=== PATIENT | male | born 1955 | race Caucasian/White ===

== ENCOUNTER 2024-01-05 08:57 | Emergency (ER) | payer OTHER, SELFPAY ==
[2024-01-05 08:59] VITALS: BP 152/82
--- NOTE | 2024-01-05 10:07 | ED.MUSCINJ ---
HPI-Injury
General
Chief Complaint: Musculo-Skeletal Complaint
Source: patient
Exam Limitations: none
Time Seen by Provider: 01/05/24 09:48
Nursing documentation reviewed up to this point in time: agreed with
History of Present Illness-Injury
Is this injury a work related problem?: No
Is pt an associate of [facility]?: No
Initial Injury comments:
68-year-old male presents with bilateral upper back pain for 3 days. He pushes and pulls his in her hospital bed at home. He states he did range of motion exercises which did seem to help. He also took baclofen.
Past History
Past History
ED Past Medical History: CAD, GERD (Hiatal hernia), HTN, Hypercholesterolemia, IDDM and Other (Obesity)
ED Past Surgical History: Cardiac (PTCA with stent right coronary artery September 2014. Stent �2 LAD January 2016) and Cholecystectomy
Social History
Tobacco: Former smoker
Alcohol: None
Personal:
Living: with family
Employment: Employed
Family History
Family History: Diabetes and Hypertension; Negative Early CAD
Review of Systems
Review of Systems
Allergies reviewed?: Yes
All Other Systems: Not applicable
Constitutional: Reports no symptoms
EENT: Reports no symptoms
Respiratory: Reports no symptoms
Cardiac: Reports no symptoms; Denies chest pain
ABD/GI: Reports no symptoms
: Reports no symptoms
Musculoskeletal: Reports muscle pain and back pain
Skin: Reports no symptoms
Neurological: Reports no symptoms
Endocrine: Reports no symptoms
Hematologic/Lymphatic: Reports no symptoms
Psychiatric: Reports no symptoms
Phy Exam
Physical Exam
Physical Exam:
Physical Exam
General: no apparent distress, not acutely ill
Neck: supple. no meningeal signs. normal posterior pharynx
Heart: s1/s2 regular rate and rhythm, no murmur. equal radial
pulses.
HEENT: Pupils equal round reactive to light, EOMI
Lungs: no acute respiratory distress. clear bilaterally
Abdomen: normal bowel sounds. not tender. no CVAT, right vertical abdominal incision scar
Neuro: alert and oriented. no focal neurological deficits cranial nerves II through XII intact
Skin: no rash
Psychiatric: well kept. interactive and cooperative
Extremities: no edema. no calf tenderness. negative homans. good distal pulses
Injury Course
Orders/Labs/Results
Orders:
Orders
01/05/24 09:05
Electrocardiogram (*1) Urgent
Reason for Study: Other
Other Reason for Exam: back pain
EKG- Treatment ONCE
01/05/24 10:09
Case Management Consult ONCE
Case Management Consult: VN/Home Care
Requested By:: PHYSICIAN
01/05/24 11:12
Lidocaine [Lidocaine 4% Patch] 1 patch TOPICAL STAT STA
01/05/24 11:13
Acetaminophen [Tylenol] 650 mg PO NOW STA
MDM/Problems Addressed
Differential Diagnosis Includes:
CHF, CT, muscle strain
MDM/Problems Addressed:
68-year-old male with bilateral shoulder strain. No chest pain, no shortness of breath. No signs of ischemia on EKG. Will treat with Tylenol Lidoderm, stretching. Stable for discharge.
Chronic conditions affecting care: HTN and CAD
*Pulse Oximetry
Patient hypoxic: no
*EKG
Interpreted by ED Provider?: Yes
EKG Intrepretation Date: 01/05/24
EKG Intrepretation Time: 09:09
Interpretation: abnormal
Comparison EKG: no changes
Heart Rate: 70
Rate: normal
Rhythm: sinus
[place]: normal axis
Interval: first degree heart block
QRS Pattern: normal QRS
Ischemia: no ischemia
*Sewing Demonstrator Interpretation
Rate: Sewing Demonstrator- N/A
*Critical Care Note
Total Time (30-74mins, 75-104mins- exclusive of procedures): Not Applicable
Data Reviewed
Further Testing Considered But Not Given:
Labs and imaging not indicated
Patient Management
Social determinants of health affecting care: Living situation
Escalation/DeEscalation of care consider admission/obs:
Admit not indicated
ED Attending Note
-
Portions of this chart may have been created with voice recognition software.� Occasional wrong word or��sound alike� substitutions may have occurred due to the inherent limitations of voice recognition software.
Discharge Plan
Departure
Patient Disposition: Home (Routine Discharge)
Date of Disposition: 01/05/24
Time of Disposition: 11:17
Patient with high blood pressure during this ER visit?: Yes
Condition: Good
Discharge Problem:
Muscle strain of upper back
Instructions: Muscle Strain (DC)
Prescriptions:
No Action
aspirin 81 MG tablet,delayed release (DR/EC)
81 mg PO DAILY
atorvastatin 80 MG tablet
80 mg PO QPM
famotidine 40 MG tablet
40 mg PO DAILY
clopidogrel 75 MG tablet
75 mg PO DAILY Qty: 90 3RF
Hold Instructions: Resume on 06/11/23. Do not resume if there is still significant blood in the urine - call the office to discuss if you are still having bleeding at this time
furosemide 40 MG tablet
40 mg PO DAILY
carvedilol 12.5 MG tablet
12.5 mg PO BID
isosorbide mononitrate 30 MG tablet extended release 24 hr
30 mg PO DAILY
tamsulosin 0.4 MG capsule
0.4 mg PO BID
amlodipine 10 MG tablet
10 mg PO DAILY
irbesartan 150 MG tablet
150 mg PO DAILY
oxybutynin chloride 5 MG tablet
5 mg PO QPM
finasteride 5 mg Tablet
5 mg PO DAILY
Novolin 70/30 U-100 Insulin 100 unit/mL (70-30) Suspension
70 unit SC . DAILY IN A.M.
insulin NPH and regular human 100 unit/mL (70-30) Suspension
50 unit SC QPM
Referrals:
Jef Madsen MD [Family Provider] - Call in 1-3 days for appt
Interventions
Interventions:
*Risk Screen - Suicide Last Done: 01/05/24 10:07
*General Assessment Last Done: 01/05/24 09:01
*Neglect/Abuse Screening Last Done: 01/05/24 10:07
ED- Fall Risk Assessment Last Done: 01/05/24 10:48
*ED COVID-19 Vaccine History Last Done: 01/05/24 09:01
ED-Musculoskeletal Assessment Last Done: 01/05/24 10:02
Discharge Date and Time
Print Language: MALTESE
[2024-01-05 10:08] VITALS: BMI 41.5
[2024-01-05 10:11] VITALS: BP 156/87
--- NOTE | 2024-01-05 11:44 | CM ---
Addendum entered by No Ann RN 01/05/24 12:02:
Caregiver list provided
Original Note:
Patient in ED 31 with Dx muscle strain upper back.
Met with patient who resides with his in a 2 story house with 3 VEDA and ramp access. Patient's bedroom/bath on first floor.
The patient has been independent in ADLs and ambulation.
The patient has no DME or prior VN.
PCP - Jef Madsen
Pharmacy - [facility] Piter Silver, Jorge Alberto
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 He feels he has upper back/shoulder pain due to repeatedly pulling his up in bed by himself, several times/day. His was approved for 63 hrs/week caregiver through
Medicaid, however [facility] only provided one caregiver so there are a few days when there isn't a caregiver to assist. Their daughter lives with him but does not help - says she works days & evenings. Caregiver
Discussed using the reyna lift, always having 2nd person assisting with pulling her up in bed (caregiver, daughter) and using drawsheet for repositioning.
Offered VN for PT and patient agrees - he chooses [facility].
Referral to FABIO Villagomez.
Plan home today with [facility] and Caregiver List.
[2024-01-05] MEDS: TYLENOL 650 MG PO (11:52)
[2024-01-05] MEDS: LIDOCAINE 4% PATCH 1 PATCH TOPICAL (11:52)
== END 2024-01-05 12:50 | disposition home or self-care (01) ==
LOC: EMR 08:57
PROVIDERS: EMERGENCY PHYSICIAN Emergency Medicine; FAMILY PHYSICIAN Family Medicine
DX: S29.012A Strain of muscle and tendon of back wall of thorax, initial encounter (principal); X58.XXXA Exposure to other specified factors, initial encounter; I25.10 Atherosclerotic heart disease of native coronary artery without angina pectoris; I10 Essential (primary) hypertension; K21.9 Gastro-esophageal reflux disease without esophagitis; K44.9 Diaphragmatic hernia without obstruction or gangrene; Z95.5 Presence of coronary angioplasty implant and graft; Z90.49 Acquired absence of other specified parts of digestive tract; E66.9 Obesity, unspecified; E11.9 Type 2 diabetes mellitus without complications; I44.0 Atrioventricular block, first degree; M19.90 Unspecified osteoarthritis, unspecified site; E78.00 Pure hypercholesterolemia, unspecified; Z87.891 Personal history of nicotine dependence; Z87.01 Personal history of pneumonia (recurrent); Z79.4 Long term (current) use of insulin
CPT/HCPCS: 99283; 93005

== ENCOUNTER 2024-06-08 00:59 | Emergency (ER) | payer OTHER, SELFPAY ==
[2024-06-08 01:02] VITALS: BP 160/83
[2024-06-08 02:05] VITALS: BMI 44.1
--- NOTE | 2024-06-08 02:09 | ED.GENMED ---
History of Present Illness
General
Chief Complaint: Musculo-Skeletal Complaint
Source: patient
Exam Limitations: none
Time Seen by Provider: 06/08/24 01:59
History of Present Illness
History of Present Illness:
See MDM
Past History
Past History
ED Past Medical History: CAD, GERD (Hiatal hernia), HTN, Hypercholesterolemia, IDDM and Other (Obesity)
ED Past Surgical History: Cardiac (PTCA with stent right coronary artery September 2014. Stent �2 LAD January 2016) and Cholecystectomy
Social History
Tobacco: Former smoker
Alcohol: None
Personal:
Living: with family
Employment: Employed
Family History
Family History: Diabetes and Hypertension; Negative Early CAD
Phy Exam
Physical Exam
Physical Exam:
See MDM
Course
Orders/Labs/Results
Orders:
Orders
06/08/24 01:02
Foot, Left 3 View [CR Foot - Left Min 3 Views] Urgent
Comment:
Reason For Exam: pain
06/08/24 02:09
Ketorolac [Toradol] 30 mg IM NOW STA
06/08/24 03:16
Oxycodone [Roxicodone] 5 mg PO NOW STA
Vital Signs
Initial and Last Documented VS:
Initial Vital Signs
Temp Pulse Resp BP Pulse Ox
97.4 F 63 20 160/83 100
06/08/24 01:02 06/08/24 01:02 06/08/24 01:02 06/08/24 01:02 06/08/24 01:02
Last Documented Vital Signs
Temp Pulse Resp BP Pulse Ox
97.4 F 63 20 160/83 100
06/08/24 01:02 06/08/24 01:02 06/08/24 01:02 06/08/24 01:02 06/08/24 01:02
MDM/Problems Addressed
Differential Diagnosis Includes:
HPI and MDM Narrative:
68-year-old male presenting with left foot pain. Patient does acknowledge that he hit his foot against a piece of furniture earlier in the day. Patient states his foot started to hurt throughout the day and is having trouble bearing weight. He
denies any redness or numbness. X-ray was done prior to my evaluation and shows no evidence of acute fracture. On exam, he has tenderness to the dorsum of his foot but it is neurovascularly intact. There is no skin changes. Will give dose of
Toradol and continue to reassess
Physical exam
General: Well appearing and non-toxic
HEENT: protecting airway
Neck: appears supple
CV: No evidence of cyanosis
Resp: No accessory muscle use
Abd: Non-distended
Extremities: Mild edema to dorsum of left foot. Distal extremity neurovascular intact. DP +2. Sensation grossly intact
Neuro: alert
Psych: Normal affect
Skin: Intact
Problems Addressed including Acute and Chronic Conditions affecting care:
1. Left foot pain
Acuity: acute
Prognosis: stable
Details: No evidence of fracture on exam. Will give Toradol. Discussed likely contusion or sprain. No skin changes to suggest gout
Updates
Symptoms improving with Toradol. Discussed follow-up with podiatry.
Differential Diagnosis (but not limited to): Sprain, strain, gout, fracture
Testing considered: Blood work
Drug therapy (if applicable): OTC meds, please see d/c instruction regarding Rx drugs
Amount and/or Complexity of Data Reviewed
Clinical info obtained from: Patient
External data reviewed: N/A
Labs I independently reviewed (but not limited to): N/A
Radiology: X-ray independently reviewed: Left foot x-ray without evidence of fracture
Pulse Ox: not hypoxic
EKG independently reviewed: N/A
Laborer Golf Course: N/A
Critical Care: N/A
Risk of Complication:
Social Determinants of health: Good social support
Discussed with other providers: N/A
Escalation of Care includes Admit/Obs: After being observed in the Emergency Department, pt stable for discharge.
Occasional wrong word or 'sound a like' substitutions may have occurred due to the inherent limitations of voice recognition software. Read the chart carefully and recognize, using context, where substitutions have occurred.
*Critical Care Note
Total Time (30-74mins, 75-104mins- exclusive of procedures): Not Applicable
ED Attending Note
-
Portions of this chart may have been created with voice recognition software.� Occasional wrong word or��sound alike� substitutions may have occurred due to the inherent limitations of voice recognition software.
Discharge Plan
Departure
Patient Disposition: Home (Routine Discharge)
Date of Disposition: 06/08/24
Time of Disposition: 03:16
Patient with high blood pressure during this ER visit?: Yes
Discharge Problem:
Foot pain, left
Prescriptions:
New
diclofenac potassium 50 mg tablet
50 mg PO BID Qty: 20 0RF
oxycodone 5 mg tablet
5 mg PO Q8H PRN (Reason: Pain) Qty: 10 0RF
No Action
aspirin 81 MG tablet,delayed release (DR/EC)
81 mg PO DAILY
atorvastatin 80 MG tablet
80 mg PO QPM
famotidine 40 MG tablet
40 mg PO DAILY
clopidogrel 75 MG tablet
75 mg PO DAILY Qty: 90 3RF
furosemide 40 MG tablet
40 mg PO DAILY
carvedilol 12.5 MG tablet
12.5 mg PO BID
isosorbide mononitrate 30 MG tablet extended release 24 hr
30 mg PO DAILY
tamsulosin 0.4 MG capsule
0.4 mg PO BID
amlodipine 10 MG tablet
10 mg PO DAILY
irbesartan 150 MG tablet
150 mg PO DAILY
oxybutynin chloride 5 MG tablet
5 mg PO QPM
finasteride 5 mg Tablet
5 mg PO DAILY
Novolin 70/30 U-100 Insulin 100 unit/mL (70-30) Suspension
70 unit SC . DAILY IN A.M.
insulin NPH and regular human 100 unit/mL (70-30) Suspension
50 unit SC QPM
Referrals:
Elinor Montanez DPM [Active] -
Jef Madsen MD [Family Provider] -
Activity Restrictions/Additional Instructions:
Please return for any worsening symptoms.
You may return at any time if you have further concerns.
Please follow up with your doctor at the first available appointment, preferably this week.
Please make an appointment to see the maintenance repairer if symptoms persist.
You were given a prescription for narcotics. If you require this pain medicine, please take a daily [id number] stool softener to avoid constipation.
Thank you for choosing [facility].
Interventions
Interventions:
*Risk Screen - Suicide Last Done: 06/08/24 01:02
*General Assessment Last Done: 06/08/24 01:00
ED- Fall Risk Assessment Last Done: 06/08/24 02:35
ED-Musculoskeletal Assessment Last Done: 06/08/24 02:35
Discharge Date and Time
Print Language: BENGALI
[2024-06-08] MEDS: TORADOL 30 MG IM (02:12)
[2024-06-08] MEDS: ROXICODONE 5 MG PO (03:24)
[2024-06-08 03:36] VITALS: BP 151/74
== END 2024-06-08 03:34 | disposition home or self-care (01) ==
LOC: EMR 00:59
PROVIDERS: EMERGENCY PHYSICIAN Student in an Organized Health Care Education/Training Program; FAMILY PHYSICIAN Family Medicine
DX: M79.672 Pain in left foot (principal); W22.03XA Walked into furniture, initial encounter; I25.10 Atherosclerotic heart disease of native coronary artery without angina pectoris; I10 Essential (primary) hypertension; E78.00 Pure hypercholesterolemia, unspecified; E11.9 Type 2 diabetes mellitus without complications; Z87.891 Personal history of nicotine dependence; Z95.5 Presence of coronary angioplasty implant and graft; Z90.49 Acquired absence of other specified parts of digestive tract
CPT/HCPCS: 96372; 99284; 73630

== ENCOUNTER → 2024-07-02 13:30 | Outpatient (REF) | payer OTHER, SELFPAY | LOC: RCS 13:30 | PROVIDERS: ATTENDING PHYSICIAN Internal Medicine Cardiovascular Disease; FAMILY PHYSICIAN Family Medicine | DX: I35.0 Nonrheumatic aortic (valve) stenosis (principal) | CPT/HCPCS: 93306 ==

== ENCOUNTER 2024-11-18 13:06 | Emergency (ER) | payer OTHER, SELFPAY ==
[2024-11-18 13:14] VITALS: BP 157/99
[2024-11-18 13:42] LABS: % Basophils 0.3 % (0-2); % Eosinophils 3.4 % (0-6); % Immature Granulocytes 0.4 % (0-0.5); % Lymphocytes 17.1 % (20.5-51.1); % Monocytes 5.8 % (1.7-9.3); Absolute Eosinophils 0.3 10^3/uL (0-0.7); Absolute Lymphocytes 1.3 10^3/uL (1.2-3.4); Absolute Monocytes 0.4 10^3/uL (0.1-0.6); Absolute Neutrophils 5.4 10^3/uL (1.4-6.5); Hematocrit 40.1 % (39.0-52.0); Hemoglobin 13.9 g/dL (13.0-18.0); Mean Corp Hgb Conc. 34.7 g/dL (33.0-37.0); Mean Corpuscular Hgb 29.1 pg (27.0-31.0); Mean Corpuscular Volume 83.9 fL (80.0-94.0); Mean Platelet Volume 10.6 fL (7.4-10.4); Nucleated Red Blood Cells % 0 % (-); Platelet Count 148 10^3/uL (130-400); Red Blood Cell Count 4.78 10^6/uL (4.70-6.10); Red Cell Dist. Width 13.2 % (11.5-14.5); White Blood Cell Count 7.4 10^3/uL (4.8-10.8)
[2024-11-18 13:59] LABS: ALT (SGPT) 27 U/L (0-50); AST (SGOT) 21 U/L (17-59); Albumin 3.2 g/dl (3.5-5.0); Alkaline Phosphatase 61 U/L (38-126); Blood Urea Nitrogen 19 mg/dl (9-20); Calcium 8.9 mg/dl (8.4-10.2); Carbon Dioxide 29 mmol/L (22-30); Chloride 108 mmol/L (98-107); Glucose 220 mg/dl (70-99); Lipase 36 U/L (23-300); Potassium 3.8 mmol/L (3.5-5.1); Sodium 143 mmol/L (135-145); Total Protein 5.8 g/dl (6.3-8.2); eGFR > 60.00
--- NOTE | 2024-11-18 14:30 | ED.GENMED ---
ED Provider Triage
<Karen Bey PA-C - Last Filed: 11/18/24 14:47>
-
Attestation: A medical screening examination has been initiated by a qualified medical provider. Based on the assessment performed at this time, it has been determined that an emergent medical condition may exist and the patient has been informed
that further medical evaluation and possible additional diagnostic testing may be needed.
HPI: 68-year-old male presenting with diffuse abdominal pain and watery diarrhea X 7 days. Symptoms started to improve the end of last week although returned 3 days ago and seem worse. No fever, chills, nausea, or vomiting.
No recent antibiotic use or hospitalization. No recent travel. Grandson was sick with similar symptoms a few weeks ago.
GENERAL: Alert , in no apparent distress
EYE: No visual abnormalities.
NECK: Trachea midline
ENT: No visible abnormalities.
LUNGS: No acute respiratory distress
NEUROLOGICAL: Alert and oriented
SKIN: Skin intact. No visible changes.
MUSCULOSKELETAL: Moving extremities normally
PSYCH: Normal and appropriate interaction.
This is a medical evaluation conducted in person to initiate diagnostic evaluation and provide initial therapeutics. Please see further documentation by the treating clinician.
Will check labs, stool samples, urinalysis, CT abdomen/pelvis. Will give IV fluids. Patient declines analgesia at this time.
History of Present Illness
<Karen Bey PA-C - Last Filed: 11/18/24 14:47>
General
Chief Complaint: Abdominal Pain
Time Seen by Provider: 11/18/24 16:04
<Matthew Domingo PA-C - Last Filed: 11/18/24 19:39>
General
Source: patient
Exam Limitations: none
History of Present Illness
History of Present Illness:
See above triage note. 68-year-old male presents with intermittent diarrhea over the last 10 days. He had an episode that started 10 days ago and lasted 4 days. This seemed to improve when he is feeling better however 2 nights ago he notes
recurrent diarrhea. He notes greater than 5 episodes of watery yellow stool a day. No recent antibiotics. He denies any black discoloration to the stool. No fever. He is nauseous without vomiting. He notes generalized abdominal pain. No other
complaints at this time
Past History
<Karen Bey PA-C - Last Filed: 11/18/24 14:47>
Past History
ED Past Medical History: CAD, GERD (Hiatal hernia), HTN, Hypercholesterolemia, IDDM and Other (Obesity)
ED Past Surgical History: Cardiac (PTCA with stent right coronary artery September 2014. Stent �2 LAD January 2016) and Cholecystectomy
Social History
Tobacco: Former smoker
Alcohol: None
Personal:
Living: with family
Employment: Employed
Family History
Family History: Diabetes and Hypertension; Negative Early CAD
Phy Exam
<Matthew Domingo PA-C - Last Filed: 11/18/24 19:39>
Physical Exam
Physical Exam:
General: Well-appearing male no acute respiratory distress
HEENT normocephalic atraumatic
Heart: Regular rate and rhythm
Lungs: Clear no wheeze
Abdomen is soft mildly diffusely tender nondistended no guarding
Extremities: No cyanosis or edema
Course
<Karen Bey PA-C - Last Filed: 11/18/24 14:47>
Orders/Labs/Results
Orders:
Orders
11/18/24 13:23
Complete Blood Count/With Diff Urgent
Comprehensive Metabolic Panel Urgent
Lipase Urgent
11/18/24 14:33
CT Abd/Pel (IV only)-DH only Urgent
Comment:
Reason For Exam: Abdominal pain, +diarrhea
0.9% Sodium Chloride 1000 ml [Nss] 1,000 ml IV BOLUS
11/18/24 16:24
Urinalysis Reflex To Culture Urgent
Date Specimen was Collected: 11/18/24
Time Specimen was Collected: 16:19
Urine Microscopic Reflex Cult Urgent
11/18/24 16:26
Ondansetron Injectable [Zofran] 4 mg IV NOW STA
11/18/24 18:11
Lactic Acid Urgent
11/18/24 18:45
STOOL [C difficile Antigen & Toxins] Urgent
AV Source: Feces/Stool
Specimen Description:
Date Specimen was Collected: 11/18/24
Time Specimen was Collected: 18:44
Stool Culture Urgent
AV Source: Feces/Stool
Specimen Description:
Date Specimen was Collected: 11/18/24
Time Specimen was Collected: 18:44
Abnormal Lab Results
11/18/24 11/18/24
13:23 16:24
MPV 10.6 H fL
(7.4-10.4)
Lymphocytes % 17.1 L %
(20.5-51.1)
Chloride 108 H mmol/L
(98-107)
Glucose 220 H mg/dl
(70-99)
Total Protein 5.8 L g/dl
(6.3-8.2)
Albumin 3.2 L g/dl
(3.5-5.0)
Urine Bacteria (Reflex) Few A
(Negative)
Urine Glucose 2+ A
(Negative)
Urine Albumin (Reflex) 1+ A
(Neg - Trace)
11/18/24 13:23
11/18/24 13:23
Vital Signs
Initial and Last Documented VS:
Initial Vital Signs
Temp Pulse BP Pulse Ox
98.1 F 66 157/99 99
11/18/24 13:14 11/18/24 13:14 11/18/24 13:14 11/18/24 13:14
Last Documented Vital Signs
Temp Pulse Resp BP Pulse Ox
98.1 F 60 16 144/79 98
11/18/24 13:14 11/18/24 15:20 11/18/24 15:20 11/18/24 18:03 11/18/24 18:15
<Matthew Domingo PA-C - Last Filed: 11/18/24 19:39>
Orders/Labs/Results
Orders:
Orders
11/18/24 13:23
Complete Blood Count/With Diff Urgent
Comprehensive Metabolic Panel Urgent
Lipase Urgent
11/18/24 14:33
CT Abd/Pel (IV only)-[facility] only Urgent
Comment:
Reason For Exam: Abdominal pain, +diarrhea
0.9% Sodium Chloride 1000 ml [Nss] 1,000 ml IV BOLUS
11/18/24 16:24
Urinalysis Reflex To Culture Urgent
Date Specimen was Collected: 11/18/24
Time Specimen was Collected: 16:19
Urine Microscopic Reflex Cult Urgent
11/18/24 16:26
Ondansetron Injectable [Zofran] 4 mg IV NOW STA
11/18/24 18:11
Lactic Acid Urgent
11/18/24 18:45
STOOL [C difficile Antigen & Toxins] Urgent
AV Source: Feces/Stool
Specimen Description:
Date Specimen was Collected: 11/18/24
Time Specimen was Collected: 18:44
Stool Culture Urgent
AV Source: Feces/Stool
Specimen Description:
Date Specimen was Collected: 11/18/24
Time Specimen was Collected: 18:44
Abnormal Lab Results
11/18/24 11/18/24
13:23 16:24
MPV 10.6 H fL
(7.4-10.4)
Lymphocytes % 17.1 L %
(20.5-51.1)
Chloride 108 H mmol/L
(98-107)
Glucose 220 H mg/dl
(70-99)
Total Protein 5.8 L g/dl
(6.3-8.2)
Albumin 3.2 L g/dl
(3.5-5.0)
Urine Bacteria (Reflex) Few A
(Negative)
Urine Glucose 2+ A
(Negative)
Urine Albumin (Reflex) 1+ A
(Neg - Trace)
11/18/24 13:23
11/18/24 13:23
Vital Signs
Initial and Last Documented VS:
Initial Vital Signs
Temp Pulse BP Pulse Ox
98.1 F 66 157/99 99
11/18/24 13:14 11/18/24 13:14 11/18/24 13:14 11/18/24 13:14
Last Documented Vital Signs
Temp Pulse Resp BP Pulse Ox
98.1 F 60 16 144/79 98
11/18/24 13:14 11/18/24 15:20 11/18/24 15:20 11/18/24 18:03 11/18/24 18:15
<Matthew Domingo PA-C - Last Filed: 11/18/24 19:39>
MDM/Problems Addressed
Differential Diagnosis Includes:
Intermittent diarrhea over the past 10 days. Consider viral illness electrolyte abnormality C. difficile, colitis.
Patient is tender on exam. CT of the abdomen is pending. Fluids and Zofran ordered stool cultures are ordered pending patient ability to give sample
<Matthew Domingo PA-C - Last Filed: 11/18/24 19:39>
*Critical Care Note
Total Time (30-74mins, 75-104mins- exclusive of procedures): Not Applicable
<Matthew Domingo PA-C - Last Filed: 11/18/24 19:39>
Update Note
Update Note:
CT shows findings suggestive of enterocolitis. Lactic acid is normal. Do not suspect ischemic colitis. Patient was able to provide stool specimen. Cultures are pending. Given recurrent and duration of symptoms we will start on Augmentin.
Patient aware this may make his diarrhea worse. No indication for admission. Stable for discharge
ED Attending Note
<Kaern Bey PA-C - Last Filed: 11/18/24 14:47>
-
Portions of this chart may have been created with voice recognition software.� Occasional wrong word or��sound alike� substitutions may have occurred due to the inherent limitations of voice recognition software.
Discharge Plan
Departure
Patient Disposition: Home (Routine Discharge)
Date of Disposition: 11/18/24
Time of Disposition: 19:36
Patient with high blood pressure during this ER visit?: No
Discharge Problem:
Enterocolitis
Instructions: Diarrhea in teens and adults
Prescriptions:
New
amoxicillin-pot clavulanate 875-125 mg tablet
1 tab PO BID Qty: 14 0RF
dicyclomine 10 mg capsule
10 mg PO QID PRN (Reason: pain) Qty: 10 0RF
No Action
aspirin 81 MG tablet,delayed release (DR/EC)
81 mg PO DAILY
atorvastatin 80 MG tablet
80 mg PO QPM
famotidine 40 MG tablet
40 mg PO DAILY
clopidogrel 75 MG tablet
75 mg PO DAILY Qty: 90 3RF
furosemide 40 MG tablet
40 mg PO DAILY
carvedilol 12.5 MG tablet
12.5 mg PO BID
isosorbide mononitrate 30 MG tablet extended release 24 hr
30 mg PO DAILY
tamsulosin 0.4 MG capsule
0.4 mg PO BID
amlodipine 10 MG tablet
10 mg PO DAILY
irbesartan 150 MG tablet
150 mg PO DAILY
oxybutynin chloride 5 MG tablet
5 mg PO QPM
finasteride 5 mg Tablet
5 mg PO DAILY
Novolin 70/30 U-100 Insulin 100 unit/mL (70-30) Suspension
70 unit SC . DAILY IN A.M.
insulin NPH and regular human 100 unit/mL (70-30) Suspension
50 unit SC QPM
diclofenac potassium 50 mg tablet
50 mg PO BID Qty: 20 0RF
oxycodone 5 mg tablet
5 mg PO Q8H PRN (Reason: Pain) Qty: 10 0RF
Referrals:
Jef Madsen MD [Family Provider] -
Activity Restrictions/Additional Instructions:
Take antibiotics as directed. Please return here for worsening symptoms. Use Bentyl as needed for spasm. Drink plenty of fluids. You should receive a call if your stool culture is positive
Interventions
Interventions:
*Risk Screen - Suicide Last Done: 11/18/24 15:59
*General Assessment Last Done: 11/18/24 15:59
*Neglect/Abuse Screening Last Done: 11/18/24 15:59
*ED- Fall Risk Assessment Last Done: 11/18/24 15:59
*ED COVID-19 Vaccine History Last Done: 11/18/24 15:59
WA-Lewrak-Awmijnxyto Assessment Last Done: 11/18/24 15:59
Discharge Date and Time
Print Language: [id number]
[2024-11-18 15:20] VITALS: BP 154/77
[2024-11-18 15:59] VITALS: BMI 44.0
[2024-11-18] MEDS: NSS 1000 IV (16:21)
[2024-11-18 16:32] LABS: Urine Albumin 1+ (Neg - Trace); Urine Bilirubin Negative (Negative); Urine Character Clear (Clear); Urine Color Yellow; Urine Glucose 2+ (Negative); Urine Ketone Negative (Negative); Urine Leukocyte Negative (Negative); Urine Nitrite Negative (Negative); Urine Occult Blood Negative (Negative); Urine Urobilinogen Negative (Neg - 1+)
[2024-11-18] MEDS: ZOFRAN 4 MG IV (16:32)
[2024-11-18 16:41] LABS: Urine Mucus Moderate
[2024-11-18 16:42] LABS: Urine Red Blood Cell 0-2 /HPF (0-2); Urine White Cell 0-2 /HPF (0-5)
[2024-11-18 16:43] LABS: Urine Bacteria Few (Negative); Urine Calcium Oxalate Crystals Seen
[2024-11-18 18:03] VITALS: BP 144/79
[2024-11-18 18:32] LABS: Lactic Acid 1.3 mmol/L (0.7-2.0)
[2024-11-18 19:00] VITALS: BP 116/58
[2024-11-18 20:06] VITALS: BP 130/74
== END 2024-11-18 20:17 | disposition home or self-care (01) ==
LOC: EMR 13:06
PROVIDERS: Physician Assistant; Student in an Organized Health Care Education/Training Program; EMERGENCY PHYSICIAN Student in an Organized Health Care Education/Training Program; FAMILY PHYSICIAN Family Medicine
DX: K52.9 Noninfective gastroenteritis and colitis, unspecified (principal); I25.10 Atherosclerotic heart disease of native coronary artery without angina pectoris; I10 Essential (primary) hypertension; E11.9 Type 2 diabetes mellitus without complications; E78.00 Pure hypercholesterolemia, unspecified; K44.9 Diaphragmatic hernia without obstruction or gangrene; K21.9 Gastro-esophageal reflux disease without esophagitis; E66.9 Obesity, unspecified; Z95.5 Presence of coronary angioplasty implant and graft; Z87.891 Personal history of nicotine dependence; Z79.4 Long term (current) use of insulin; Z79.82 Long term (current) use of aspirin; Z90.49 Acquired absence of other specified parts of digestive tract; Z88.5 Allergy status to narcotic agent; Z88.8 Allergy status to other drugs, medicaments and biological substances
CPT/HCPCS: 99284; 96361; 96374; 74177; 80053; 81003; 81015; 83605; 83690; 85025; 87045; 87046; 87324; 87427; 87449; Q9967

== ENCOUNTER → 2024-12-19 06:56 | Outpatient (REF) | payer OTHER, SELFPAY | LOC: RAD 06:56 | PROVIDERS: ATTENDING PHYSICIAN Family Medicine | DX: R91.1 Solitary pulmonary nodule (principal) | CPT/HCPCS: 71270; Q9967 ==

== ENCOUNTER → 2024-12-29 07:50 | Outpatient (REF) | payer OTHER, SELFPAY ==
[2024-12-29 08:19] LABS: % Basophils 0.5 % (0-2); % Eosinophils 3.1 % (0-6); % Immature Granulocytes 0.2 % (0-0.5); % Lymphocytes 26.4 % (20.5-51.1); % Monocytes 7.4 % (1.7-9.3); % Neutrophils 62.4 % (42.2-75.2); Absolute Eosinophils 0.1 10^3/uL (0-0.7); Absolute Lymphocytes 1.1 10^3/uL (1.2-3.4); Absolute Monocytes 0.3 10^3/uL (0.1-0.6); Absolute Neutrophils 2.6 10^3/uL (1.4-6.5); Hematocrit 40.4 % (39.0-52.0); Hemoglobin 13.4 g/dL (13.0-18.0); Mean Corp Hgb Conc. 33.2 g/dL (33.0-37.0); Mean Corpuscular Hgb 28.4 pg (27.0-31.0); Mean Corpuscular Volume 85.6 fL (80.0-94.0); Mean Platelet Volume 9.6 fL (7.4-10.4); Nucleated Red Blood Cells % 0 % (-); Platelet Count 160 10^3/uL (130-400); Red Blood Cell Count 4.72 10^6/uL (4.70-6.10); Red Cell Dist. Width 12.6 % (11.5-14.5); White Blood Cell Count 4.2 10^3/uL (4.8-10.8)
[2024-12-29 08:41] LABS: INR 1.19; PT 15.4 Sec (11.4-14.6)
[2024-12-29 08:45] VITALS: BP 173/88; BP_SYST 57; BMI 42.3
[2024-12-29 09:07] LABS: Glucose - Point of Care 113 mg/dl (70-99)
== END ==
LOC: REG 07:50
PROVIDERS: ATTENDING PHYSICIAN Family Medicine
DX: R16.0 Hepatomegaly, not elsewhere classified (principal)
CPT/HCPCS: 36415; 76705; 82962; 85025; 85610

== ENCOUNTER 2025-01-05 07:45 | Outpatient (REF) | payer OTHER, SELFPAY ==
[2025-01-05] VITALS (11 sets, daily range): BP systolic 48–179; BP diastolic 67–93; BMI 42.2
[2025-01-05 08:43] LABS: Glucose - Point of Care 148 mg/dl (70-99)
== END 2025-01-05 13:30 | disposition home or self-care (01) ==
LOC: RADI 07:45
PROVIDERS: ATTENDING PHYSICIAN Family Medicine
DX: C22.7 Other specified carcinomas of liver (principal)
CPT/HCPCS: 88307; 47000; 76705; 77012; 82962; 88313; 88333; 99152; 99153

== ENCOUNTER → 2025-02-13 11:01 | Outpatient (REF) | payer OTHER, SELFPAY | LOC: HWRAD 11:01 | PROVIDERS: ATTENDING PHYSICIAN Internal Medicine; PRIMARYCARE PHYSICIAN Family Medicine | DX: R91.8 Other nonspecific abnormal finding of lung field (principal) | CPT/HCPCS: 71250 ==

== ENCOUNTER 2025-02-18 06:18 | Day surgery (SDC) | payer OTHER, SELFPAY ==
[2025-02-13 14:23] VITALS: BMI 43.4
[2025-02-13 14:35] LABS: Hematocrit 38.1 % (39.0-52.0); Hemoglobin 12.5 g/dL (13.0-18.0); Mean Corp Hgb Conc. 32.8 g/dL (33.0-37.0); Mean Corpuscular Volume 87.2 fL (80.0-94.0); Platelet Count 137 10^3/uL (130-400); Red Cell Dist. Width 13.2 % (11.5-14.5)
[2025-02-13 14:46] LABS: INR 1.19; PT 15.4 Sec (11.4-14.6)
[2025-02-13 14:47] LABS: APTT 31.3 Sec (23.4-35.0)
[2025-02-13 15:31] LABS: Blood Urea Nitrogen 23 mg/dl (9-20); Calcium 9.3 mg/dl (8.4-10.2); Carbon Dioxide 32 mmol/L (22-30); Chloride 104 mmol/L (98-107); Estimated Creatinine Clearance 108 ml/min; Glucose 145 mg/dl (70-99); Potassium 4.3 mmol/L (3.5-5.1); Sodium 141 mmol/L (135-145); eGFR > 60.00
[2025-02-18] VITALS (10 sets, daily range): BP systolic 138–182; BP diastolic 67–83; BMI 44.9
[2025-02-18 08:09] LABS: Glucose - Point of Care 121 mg/dl (70-99)
[2025-02-18] MEDS: NSS 500 IV (08:35)
[2025-02-18 10:24] LABS: Glucose - Point of Care 129 mg/dl (70-99)
[2025-02-18 13:11] LABS: Glucose - Point of Care 157 mg/dl (70-99)
== END 2025-02-18 14:58 | disposition home or self-care (01) ==
LOC: SDS 06:18
PROVIDERS: ATTENDING PHYSICIAN Internal Medicine Critical Care Medicine; FAMILY PHYSICIAN Family Medicine
DX: J98.4 Other disorders of lung (principal); R91.8 Other nonspecific abnormal finding of lung field; R84.6 Abnormal cytological findings in specimens from respiratory organs and thorax; C22.0 Liver cell carcinoma; I10 Essential (primary) hypertension; R93.89 Abnormal findings on diagnostic imaging of other specified body structures; I25.10 Atherosclerotic heart disease of native coronary artery without angina pectoris
CPT/HCPCS: 31629; 31652; 31628; 31627; 31623; 31624; 31654; 36415; 71045; 76000; 80048; 82962; 85027; 85610; 85730; 87015; 87070; 87102; 87116; 87205; 88112; 88173; 88305; 88333; C1887

== ENCOUNTER → 2025-02-19 18:27 | Outpatient (REF) | payer OTHER, SELFPAY | LOC: MRI 18:27 | PROVIDERS: ATTENDING PHYSICIAN Internal Medicine Hematology & Oncology; FAMILY PHYSICIAN Family Medicine | DX: C22.0 Liver cell carcinoma (principal) | CPT/HCPCS: 74183; A9581 ==

== ENCOUNTER 2025-02-26 03:06 | Emergency (ER) | payer OTHER, SELFPAY ==
[2025-02-26 03:12] VITALS: BP 154/86
[2025-02-26 03:25] VITALS: BMI 42.8
[2025-02-26 03:55] LABS: Glucose - Point of Care 258 mg/dl (70-99)
[2025-02-26] MEDS: TYLENOL #3 1 TABLET PO (04:03)
[2025-02-26] MEDS: XYLOCAINE VISCOUS CUP 10 ML PO (04:04)
[2025-02-26 04:20] LABS: COVID-19 Antigen Negative (Negative)
[2025-02-26] MEDS: DECADRON 10 MG PO (05:15)
[2025-02-26 05:21] VITALS: BP 140/80
--- NOTE | 2025-02-26 07:00 | ED.GENMED ---
History of Present Illness
General
Chief Complaint: Throat Problem
Time Seen by Provider: 02/26/25 03:18
History of Present Illness
History of Present Illness:
see MDM
Past History
Past History
ED Past Medical History: CAD, GERD (Hiatal hernia), HTN, Hypercholesterolemia, IDDM and Other (Obesity)
ED Past Surgical History: Cardiac (PTCA with stent right coronary artery September 2014. Stent �2 LAD January 2016) and Cholecystectomy
Social History
Tobacco: Former smoker
Alcohol: None
Personal:
Living: with family
Employment: Employed
Family History
Family History: Diabetes and Hypertension; Negative Early CAD
Phy Exam
Physical Exam
Physical Exam:
GENERAL: Alert , in no apparent distress
EYE: pupils equal and reactive
NECK: Supple
ENT: b/l TM s clear, moderate pharyngeal erythema, no uvular deviation, no tonsillar hypertrophy, no exudate, hoarse voice, able to swallow and tolerate secretions, occasional dry cough
CARDIAC: Regular rate and rhythm, no edema
LUNGS: Clear breath sounds bilaterally, no acute respiratory distress, no wheezes/rales/rhonchi, occ cough
ABDOMEN: Soft, without focal tenderness, no r/g, no cvat, normal bowel sounds
NEUROLOGICAL: Alert and oriented, no focal neuro deficits
SKIN: Warm and dry, skin intact.
MUSCULOSKELETAL: No edema, well perfused.
PSYCH: Normal and appropriate interaction.
Course
Orders/Labs/Results
Orders:
Orders
02/26/25 03:53
Acetaminophen with Codeine [Tylenol #3] 1 tablet PO NOW STA
Viscous Lidocaine 2% [Xylocaine Viscous Cup] 10 ml PO NOW STA
02/26/25 03:56
COVID-19 Antigen Urgent
Source: Nasal Swab
Influenza A+B Rapid Molecular Urgent
AV Source: Nasal Swab
Specimen Description:
Rapid Strep Group A Urgent
AV Source: Throat/Pharynx
Specimen Description:
Date Specimen was Collected: 02/26/25
Time Specimen was Collected: 03:55
02/26/25 04:42
Dexamethasone [Decadron] 10 mg PO NOW STA
Abnormal Lab Results
02/26/25
03:53
POC Glucose 258 H mg/dl
(70-99)
Vital Signs
Initial and Last Documented VS:
Initial Vital Signs
Temp Pulse Resp BP Pulse Ox
37.1 C 63 16 154/86 98
02/26/25 03:12 02/26/25 03:12 02/26/25 03:12 02/26/25 03:12 02/26/25 03:12
Last Documented Vital Signs
Temp Pulse Resp BP Pulse Ox
37.1 C 55 20 140/80 98
02/26/25 05:21 02/26/25 05:21 02/26/25 05:21 02/26/25 05:21 02/26/25 07:00
MDM/Problems Addressed
Differential Diagnosis Includes:
seeMDM
MDM/Problems Addressed:
Note:
CHIEF COMPLAINT(S)
Severe sore throat with difficulty swallowing and hoarseness.
HISTORY OF PRESENT ILLNESS
The patient is a 69-year-old male who presents with a severe sore throat. The onset of symptoms was recent, and he describes significant pain with swallowing, affecting his ability to eat and drink. He reports hoarseness, stating 'a friend of mine
couldn�t recognize my voice.' The patient denies fever but notes congestion and a dry cough, with no expectoration of sputum. He acknowledges minimal appetite due to the throat pain. Previous evaluation by a family doctor resulted in a prescription
of amoxicillin and nasal spray. A COVID test and throat swab were performed, but results are pending. The patient mentions a rapid streptococcal test, although he is unsure whether it was completed. He attempted relief with extra strength
acetaminophen without significant improvement.
PAST MEDICAL AND SURGICAL HISTORY
The patient has a history of heart murmurs and has been told he has atrial fibrillation. He is currently not on anti-arrhythmic medication. He also has a diagnosis of diabetes mellitus, managed with 45 units of insulin in the morning and 35 units in
the evening.
CHRONIC MEDICAL CONDITIONS SIGNIFICANTLY AFFECTING CARE
1. Atrial fibrillation
2. Diabetes mellitus
MEDICATIONS
The patient is currently taking amoxicillin, nasal spray from a recent appointment, aspirin, and insulin as mentioned above.
PHYSICAL EXAM
- Ear, Nose, and Throat: The throat appears relatively unremarkable upon inspection although patient reports significant pain. Notably hoarse voice, no visible tonsillar exudate observed.
- General: The patient feels warm but denies feeling febrile.
- Cardiovascular: Heart murmur reported by the patient.
Nursing notes reviewed and vital signs reviewed.
PROBLEM LIST
Acute:
1. Severe sore throat and dysphagia
2. Hoarseness
3. Nasal congestion
Chronic:
1. Atrial fibrillation
2. Diabetes mellitus
PLAN
1. Perform a rapid streptococcal test to rule out bacterial infection specifically streptococcus.
2. Reassess COVID-19 and influenza infection status through additional swabs.
3. Offer symptomatic relief with viscous lidocaine for throat pain and Tylenol with codeine as needed.
4. Monitor blood glucose levels given the patient�s diabetes; adjust treatment if glucose levels are exceedingly high.
5. Ensure adequate hydration through assessment and provision of IV fluids if necessary, particularly if unable to maintain oral intake.
DIFFERENTIAL DIAGNOSIS
The Differential Diagnosis includes, in no particular order and is not limited to:
1. Viral pharyngitis
2. Streptococcal pharyngitis
3. Laryngitis
4. Tonsillitis
5. Epiglottitis
6. Peritonsillar abscess
7. Mononucleosis
8. Allergic rhinitis
9. Gastroesophageal reflux disease
10. Influenza
CARE-UPDATE
02/26/25 - 05:13
pt with pharyngitis/dry cough/hoarse voice
pharynx does not appear signifricantly inflamed, tolerating secretions, no fever, nontoxic
mild hyperglycemia with h/o DM
d/w ed attenidng
lkey viral
covid/flu/strep neg
Steroid medicat decadron given for inflammation/pain;p Caution about potential hyperglycemia noted, especially since patients glucose is 250 mg/dL. Advised to focus on hydration and limit sugary intake. Flu and COVID tests returned negative.
Supportive measures suggested include regular Tylenol and optional Tylenol with codeine. [id number] options discussed, such as Cetocaine spray and lozenges. Additional home remedies like using Vicks recommended. Patient mentioned difficulty
visiting spouse due to their own sore throat, which is upsetting
case d/w ed attending who agreed with d/c home
*Pulse Oximetry
SaO2: 98
Oxygen Mode of Delivery: Room air
Patient hypoxic: no (98)
*Critical Care Note
Total Time (30-74mins, 75-104mins- exclusive of procedures): Not Applicable
ED Attending Note
-
Portions of this chart may have been created with voice recognition software.� Occasional wrong word or��sound alike� substitutions may have occurred due to the inherent limitations of voice recognition software.
Discharge Plan
Departure
Patient Disposition: Home (Routine Discharge)
Date of Disposition: 02/26/25
Time of Disposition: 05:12
Patient with high blood pressure during this ER visit?: Yes
Discharge Problem:
Pharyngitis
Instructions: Sore Throat, Adult (DC), Upper respiratory infection in adults - Discharge instructions
Prescriptions:
New
acetaminophen-codeine 300-15 mg tablet
1 tab PO Q8H PRN (Reason: Pain) Qty: 6 0RF
No Action
aspirin 81 MG tablet,delayed release (DR/EC)
81 mg PO DAILY
atorvastatin 80 MG tablet
80 mg PO QPM
famotidine 40 MG tablet
40 mg PO DAILY
clopidogrel 75 MG tablet
75 mg PO DAILY Qty: 90 3RF
furosemide 40 MG tablet
40 mg PO BID
carvedilol 12.5 MG tablet
12.5 mg PO BID
isosorbide mononitrate 30 MG tablet extended release 24 hr
30 mg PO HS
amlodipine 10 MG tablet
10 mg PO DAILY
irbesartan 150 MG tablet
150 mg PO DAILY
Novolin 70/30 U-100 Insulin 100 unit/mL (70-30) Suspension
45 unit SC DAILY
Novolin 70/30 U-100 Insulin 100 unit/mL (70-30) Suspension
35 unit SC HS
Referrals:
Jef Madsen MD [Family Provider, [facility]]
Activity Restrictions/Additional Instructions:
Your rapid strep was negative, COVID and flu were negative today. This is probably a viral illness. It will take some time to resolve. YOU CAN TRY THE TYLENOL WITH CODEINE 1 TAB EVERY 6 HOURS (3 TIMES A DAY FOR 2 DAYS NEEDED, NO DRIVING OR
ALCOHOL ON THIS MEDICATION).
You can use Cetacaine spray which is [id number] to numb your throat. You could suck on Cepacol lozenges which also numb your throat topically.
Apply Vicks to the outside of your neck which can sometimes also help with painful swallowing.
Monitor your blood sugars well. Avoid carbohydrates is much as you can today. We gave you a dose of steroids to also help with the pain and swelling/inflammation in your throat from the viral illness. Should you get worse like high fever,
inability to swallow liquids or saliva, neck stiffness or severe pain with moving your neck, trouble breathing etc. you should return to the ER immediately. Otherwise follow-up with your doctor
Interventions
Interventions:
*Risk Screen - Suicide Last Done: 02/26/25 03:12
*General Assessment Last Done: 02/26/25 03:25
*Neglect/Abuse Screening Last Done: 02/26/25 03:12
*ED- Fall Risk Assessment Last Done: 02/26/25 03:12
*ED COVID-19 Vaccine History Last Done: 02/26/25 03:12
*Nursing Disposition Last Done: 02/26/25 05:24
ED-EENT Assessment Last Done: 02/26/25 03:25
ED- Pulmonary Assessment Last Done: 02/26/25 03:25
Discharge Date and Time
Discharge Date/Time: 02/26/25 05:25
Print Language: ANGUILLAN
== END 2025-02-26 05:25 | disposition home or self-care (01) ==
LOC: EMR 03:06
PROVIDERS: Physician Assistant; EMERGENCY PHYSICIAN Emergency Medicine; FAMILY PHYSICIAN Family Medicine
DX: J02.9 Acute pharyngitis, unspecified (principal); E11.65 Type 2 diabetes mellitus with hyperglycemia; I25.10 Atherosclerotic heart disease of native coronary artery without angina pectoris; I48.91 Unspecified atrial fibrillation; I10 Essential (primary) hypertension; E78.00 Pure hypercholesterolemia, unspecified; E66.9 Obesity, unspecified; Z68.41 Body mass index [BMI] 40.0-44.9, adult; K21.9 Gastro-esophageal reflux disease without esophagitis; K44.9 Diaphragmatic hernia without obstruction or gangrene; Z79.4 Long term (current) use of insulin; Z95.5 Presence of coronary angioplasty implant and graft; Z87.891 Personal history of nicotine dependence; Z82.49 Family history of ischemic heart disease and other diseases of the circulatory system; Z83.3 Family history of diabetes mellitus
CPT/HCPCS: 99283; 82962; 87070; 87502; 87811; 87880

== ENCOUNTER 2025-03-14 10:28 | Emergency (ER) | payer OTHER, SELFPAY ==
[2025-03-14] VITALS (8 sets, daily range): BP systolic 111–162; BP diastolic 54–94
--- NOTE | 2025-03-14 15:29 | ED.GENMED ---
History of Present Illness
General
Chief Complaint: Chest Pain
Source: patient
Time Seen by Provider: 03/14/25 14:31
History of Present Illness
History of Present Illness:
This patient is a 69-year-old male presents emergency department with complaints of chest pain. Of note, patient was recently diagnosed with hepatocellular carcinoma. He does have lung 'nodules', but in review of the pathology no malignant cells
noted and probably considered postinflammatory. Patient does have a history of CAD, last catheter was in 2020 which showed stable disease. He is first developed discomfort about 2 weeks ago described as 'needles' around his left nipple and also in
the same corresponding area in his back. There was not an associated rash according the patient. The pain was not sudden in onset, not ripping or tearing in quality, and did not radiate through to his back. He was diagnosed with shingles,
prescribed gabapentin and Valtrex, and his symptoms improved markedly. However, yesterday he noticed discomfort that is in the central part of his chest. This pain comes and goes without specific provoking or relieving factors. It is not
pleuritic in nature. He describes it as a 'ache'. He denies associated diaphoresis, dyspnea, nausea, vomiting, anorexia, abdominal pain, back pain, headache, neck pain, dizziness. He denies new lower extremity edema compared to chronic.
Past History
Past History
ED Past Medical History: CAD, GERD (Hiatal hernia), HTN, Hypercholesterolemia, IDDM and Other (Obesity, hepatocellular carcinoma)
ED Past Surgical History: Cardiac (PTCA with stent right coronary artery September 2014. Stent �2 LAD January 2016) and Cholecystectomy
Social History
Tobacco: Former smoker
Alcohol: None
Drug: None
Personal:
Living: with family
Employment: Employed
Family History
Family History: Diabetes and Hypertension; Negative Early CAD
Phy Exam
Physical Exam
Physical Exam:
GENERAL: Alert , in no apparent distress
EYE: pupils equal and reactive
NECK: Supple, no significant adenopathy.
ENT: o/p clr, mmm.
CARDIAC: Regular rate and rhythm, systolic murmur noted which is chronic as per patient.
LUNGS: Clear breath sounds bilaterally, no acute respiratory distress, no wheezes/rales/rhonchi
ABDOMEN: Soft, without focal tenderness, no r/g, no cvat
NEUROLOGICAL: Alert and oriented, no focal neuro deficits
SKIN: Warm and dry, skin intact, no rash noted.
MUSCULOSKELETAL: 2+ edema, well perfused.
PSYCH: Normal and appropriate interaction.
Scores
Heart Score for Chest Pain Patients
STEMI patient?: Not applicable
Course
Orders/Labs/Results
Orders:
Orders
03/14/25 10:38
EKG [Electrocardiogram (*1)] Urgent
Reason for Study: Chest Pain
EKG- Treatment ONCE
03/14/25 15:13
Cardiac Monitoring- Treatment ONCE
Pulse Ox/cont/shift [RESP] Stat
Quantity: 1
03/14/25 15:29
CR Chest - 2 Views Urgent
Comment:
Reason For Exam: cp
03/14/25 15:32
Complete Blood Count/No Diff Urgent
Comprehensive Metabolic Panel Urgent
PTT Urgent
Prothrombin Time Urgent
Troponin I Urgent
03/14/25 18:10
ECG [Electrocardiogram (*1)] Urgent
Reason for Study: Chest Pain
EKG- Treatment ONCE
03/14/25 18:22
Troponin I Urgent
Abnormal Lab Results
03/14/25
15:32
WBC 4.7 L 10^3/uL
(4.8-10.8)
RBC 4.42 L 10^6/uL
(4.70-6.10)
Hgb 12.8 L g/dL
(13.0-18.0)
Hct 37.3 L %
(39.0-52.0)
PT 14.9 H Sec
(11.4-14.6)
Carbon Dioxide 34 H mmol/L
(22-30)
Glucose 136 H mg/dl
(70-99)
03/14/25 15:32
03/14/25 15:32
Vital Signs
Initial and Last Documented VS:
Initial Vital Signs
Temp Pulse Resp BP Pulse Ox
97.9 F 55 18 162/94 99
03/14/25 10:34 03/14/25 10:34 03/14/25 10:34 03/14/25 10:34 03/14/25 10:34
Last Documented Vital Signs
Temp Pulse Resp BP Pulse Ox
97.9 F 51 17 133/78 99
03/14/25 10:34 03/14/25 14:00 03/14/25 14:00 03/14/25 14:00 03/14/25 15:29
*Pulse Oximetry
SaO2: 99
Oxygen Mode of Delivery: Room air
Patient hypoxic: no
*Critical Care Note
Total Time (30-74mins, 75-104mins- exclusive of procedures): Not Applicable
Update Note
Update Note:
Patient presents to the Emergency Department with ___chest pain
Number and Complexity of Problems Addressed at the Encounter
� Chronic conditions affecting care:
� Acute Exacerbation and/or Progression of Chronic Illness:
� Differential Diagnosis includes: But not limited to PE, ACS, musculoskeletal, residual shingles related pain, pericarditis, pneumonia, pneumothorax, etc. etc. etc.
Amount and/or Complexity of Data to be Reviewed and Analyzed
� I performed an independent evaluation of and my interpretation is:
EKG: Read by me, sinus bradycardia, no acute ischemia, compared to prior and unchanged.
CT:
Xrays: Read by me NAD
Laboratory Studies: Generally unremarkable
Other:
� Review of other/old records reveals: Patient had a In 2020 report reviewed stable coronary disease stent noted in LAD and RCA
� Clinical information was obtained by an independent historian:
� Prescriptions/Medications Considered but not given:
� Further testing considered but not performed:
Risk of Complications and/or Morbidity or Mortality of Patient Management
� Social determinants of health affecting care:
� Discussion with other providers (PCP, Hospitalists, Consultants, etc):
� Escalation of care including admission/observation vs risk of discharge considered: Patient remains comfortable here, vital signs stable. Workup here generally unremarkable. Clinically highly doubt PE given lack of dyspnea,
hemoptysis, unilateral leg swelling, tachypnea, etc. His chest pain is not pleuritic in nature. Workup does not raise suspicion for ACS. Discussed with patient importance of follow-up and reasons to return to the ER.
ED Attending Note
-
Portions of this chart may have been created with voice recognition software.� Occasional wrong word or��sound alike� substitutions may have occurred due to the inherent limitations of voice recognition software.
Discharge Plan
Departure
Patient Disposition: Home (Routine Discharge)
Date of Disposition: 03/14/25
Time of Disposition: 19:13
Patient with high blood pressure during this ER visit?: Yes
Condition: Good
Discharge Problem:
Chest pain
Instructions: Chest pain, BLOOD PRESSURE
Prescriptions:
No Action
aspirin 81 MG tablet,delayed release (DR/EC)
81 mg PO DAILY
atorvastatin 80 MG tablet
80 mg PO QPM
famotidine 40 MG tablet
40 mg PO DAILY
clopidogrel 75 MG tablet
75 mg PO DAILY Qty: 90 3RF
furosemide 40 MG tablet
40 mg PO BID
carvedilol 12.5 MG tablet
12.5 mg PO BID
isosorbide mononitrate 30 MG tablet extended release 24 hr
30 mg PO HS
amlodipine 10 MG tablet
10 mg PO DAILY
irbesartan 150 MG tablet
150 mg PO DAILY
Novolin 70/30 U-100 Insulin 100 unit/mL (70-30) Suspension
45 unit SC DAILY
Novolin 70/30 U-100 Insulin 100 unit/mL (70-30) Suspension
35 unit SC HS
acetaminophen-codeine 300-15 mg tablet
1 tab PO Q8H PRN (Reason: Pain) Qty: 6 0RF
Referrals:
Jef Madsen MD [Family Provider, Family Practice]
Activity Restrictions/Additional Instructions:
PLEASE FOLLOW UP WITH YOUR DOCTORS SCHEDULED THIS WEEK. IF YOU DEVELOP INCREASING/NEW/PERSISTENT PAIN, FEVER, VOMITING, TROUBLE BREATHING, DIZZINES, OR OTHER WORRISOME SIGNS, GO TO THE ER IMMEDIATELY!
Interventions
Interventions:
*Risk Screen - Suicide Last Done: 03/14/25 10:34
*General Assessment Last Done: 03/14/25 17:06
*Neglect/Abuse Screening Last Done: 03/14/25 10:34
ED- Cardiac Assessment Last Done: 03/14/25 13:49
Discharge Date and Time
Print Language: LITHUANIAN
[2025-03-14 15:47] LABS: Hematocrit 37.3 % (39.0-52.0); Hemoglobin 12.8 g/dL (13.0-18.0); Mean Corp Hgb Conc. 34.3 g/dL (33.0-37.0); Mean Corpuscular Volume 84.4 fL (80.0-94.0); Platelet Count 134 10^3/uL (130-400); Red Cell Dist. Width 13.5 % (11.5-14.5)
[2025-03-14 15:56] LABS: INR 1.14; PT 14.9 Sec (11.4-14.6)
[2025-03-14 15:57] LABS: APTT 30.1 Sec (23.4-35.0)
[2025-03-14 16:05] LABS: ALT (SGPT) 36 U/L (0-50); AST (SGOT) 28 U/L (17-59); Albumin 4.0 g/dl (3.5-5.0); Alkaline Phosphatase 61 U/L (38-126); Blood Urea Nitrogen 18 mg/dl (9-20); Calcium 9.1 mg/dl (8.4-10.2); Carbon Dioxide 34 mmol/L (22-30); Glucose 136 mg/dl (70-99); Total Protein 7.0 g/dl (6.3-8.2); eGFR > 60.00
[2025-03-14 16:11] LABS: Chloride 102 mmol/L (98-107); Potassium 3.7 mmol/L (3.5-5.1); Sodium 138 mmol/L (135-145)
[2025-03-14 16:16] LABS: Troponin I 0.014 ng/ml
[2025-03-14 19:07] LABS: Troponin I < 0.012 ng/ml
== END 2025-03-14 19:59 | disposition home or self-care (01) ==
LOC: EMR 10:28
PROVIDERS: EMERGENCY PHYSICIAN Emergency Medicine; FAMILY PHYSICIAN Family Medicine
DX: R07.9 Chest pain, unspecified (principal); I25.10 Atherosclerotic heart disease of native coronary artery without angina pectoris; C22.0 Liver cell carcinoma; E10.9 Type 1 diabetes mellitus without complications; I10 Essential (primary) hypertension; E78.00 Pure hypercholesterolemia, unspecified; K21.9 Gastro-esophageal reflux disease without esophagitis; K44.9 Diaphragmatic hernia without obstruction or gangrene; Z79.82 Long term (current) use of aspirin; Z79.02 Long term (current) use of antithrombotics/antiplatelets; Z79.4 Long term (current) use of insulin; Z95.5 Presence of coronary angioplasty implant and graft; Z87.891 Personal history of nicotine dependence; Z83.3 Family history of diabetes mellitus; Z82.49 Family history of ischemic heart disease and other diseases of the circulatory system
CPT/HCPCS: 99284; 71046; 80053; 84484; 85027; 85610; 85730; 93005

== ENCOUNTER 2025-03-17 09:01 | Emergency (ER) | payer OTHER, SELFPAY ==
[2025-03-17 09:10] VITALS: BP 188/89
--- NOTE | 2025-03-17 09:43 | ED.GENMED ---
History of Present Illness
General
Chief Complaint: Nose Bleed
Source: patient and records
Exam Limitations: none
Time Seen by Provider: 03/17/25 09:29
Nursing documentation reviewed up to this point in time: agreed with
History of Present Illness
History of Present Illness:
69-year-old male with history as noted presents to the ER for evaluation of epistaxis. Patient reports that he started having nosebleeding this past and symptoms have been intermittent since that time. He says that he had a flareup on
Sunday and came to the ER but by the time he was seen nosebleeding had resolved; he was evaluated in the ER for chest pain as well on Sunday but says chest pain is since resolved. He denies any trauma. He says bleeding is primarily from the
left nare although today was having some bleeding from both sides. He denies any other acute complaints. He is on aspirin and clopidogrel.
Past History
Past History
ED Past Medical History: CAD, GERD (Hiatal hernia), HTN, Hypercholesterolemia, IDDM and Other (Obesity, hepatocellular carcinoma)
ED Past Surgical History: Cardiac (PTCA with stent right coronary artery September 2014. Stent �2 LAD January 2016) and Cholecystectomy
Social History
Tobacco: Former smoker
Alcohol: None
Drug: None
Personal:
Living: with family
Employment: Employed
Family History
Family History: Diabetes and Hypertension; Negative Early CAD
Review of Systems
Review of Systems
All Other Systems: ROS reviewed and negative except as documented in HPI and ROS
EENT: Reports other (Epistaxis)
Respiratory: Denies trouble breathing
Cardiac: Denies chest pain
Neurological: Denies dizzy
Phy Exam
Physical Exam
Physical Exam:
General: Awake, alert, oriented x3; no acute distress
Head: Normocephalic, atraumatic
Eyes: Conjunctiva normal, pupils equal round and reactive to light bilaterally
Nose: Patient has some dried blood in the right nare but no active bleeding, nasal septum appears normal; on examination of the left nare he has steady active bleeding from a source that appears to be on the left nasal septum although exact source
obscured by continuous bleeding
Throat: Airway intact, handling secretions, small amount of blood in the posterior oropharynx noted but no heavy bleeding, patient protecting his airway
Neck: Trachea midline, supple without meningismus
Lungs: Breathing comfortably with no distress
Heart: Regular rate
Neuro: Grossly intact, ambulatory
Extremities: Warm and well-perfused
Scores
Heart Failure Risk
Heart Failure Risk Score: Not Applicable
Heart Score for Chest Pain Patients
STEMI patient?: Not applicable
Withdrawal Assessment of Alcohol
Withdrawal Assessment Completed?: Not applicable
Course
Vital Signs
Initial and Last Documented VS:
Initial Vital Signs
Temp Pulse Resp BP Pulse Ox
36.3 C 55 20 188/89 97
03/17/25 09:10 03/17/25 09:10 03/17/25 09:10 03/17/25 09:10 03/17/25 09:10
Last Documented Vital Signs
Temp Pulse Resp BP Pulse Ox
36.3 C 55 20 162/79 97
03/17/25 09:10 03/17/25 09:10 03/17/25 09:10 03/17/25 10:32 03/17/25 09:52
Procedures
Nosebleed
Drug treatment: Epinephrine
Treatment: Silver nitrate cautery and other (Rhino Rocket)
Post treatment bleeding: none- good control
MDM/Problems Addressed
Differential Diagnosis Includes:
Acute anterior epistaxis
MDM/Problems Addressed:
69-year-old male presents with bleeding from left nare intermittent since as described above. He is hypertensive but has otherwise acceptable vital signs. Physical exam as above�he has rather brisk steady bleeding from source that appears
to be in the left nasal septum although obscured by continuous bleeding. He is protecting his airway, only scant amount of blood in posterior oropharynx with no active bleeding appreciated. Applied epinephrine locally to the left nasal septum and
will apply continuous direct pressure to try to achieve hemostasis. If able we will try to cauterize the area once better hemostasis achieved. Monitor very closely reassess after the above.
Attempted cautery with silver nitrate after pretreatment with epinephrine and holding direct pressure�unfortunately unable to obtain adequate hemostasis and patient still having rather brisk bleeding from the left nare. Decision made to proceed
with nasal packing. 4.5 cm anterior Rhino Rocket placed and inflated with air�good hemostasis after packing. Will monitor for rebleeding and reassess.
Clinical reassessment patient remains hemostatic after nasal packing placement. No blood noted in the posterior oropharynx. Will continue to monitor here.
Patient remains hemostatic on observation after packing. Stable for discharge at this point with packing in place. Spoke to the patient in detail about follow-up plan for packing removal�will have him follow-up in the ENT office within the next 48
to 72 hours. Advised him that if he has any issues with follow-up that he should return here to have packing removed. Spoke about return precautions and all questions were answered.
Chronic conditions affecting care:
CAD on aspirin and clopidogrel complicates his epistaxis
Acute Exacerbation and/or Progression of Chronic Illness:
Acutely hypertensive
Acute Exacerbation and/or Progression of Chronic Illness: HTN
*Pulse Oximetry
SaO2: 97
Oxygen Mode of Delivery: Room air
Patient hypoxic: no (97%)
*Critical Care Note
Total Time (30-74mins, 75-104mins- exclusive of procedures): Not Applicable
Data Reviewed
Review of Other/Old Records Reveals: Labs and Records
Source: patient and records
ED Attending Note
-
Portions of this chart may have been created with voice recognition software.� Occasional wrong word or��sound alike� substitutions may have occurred due to the inherent limitations of voice recognition software.
Discharge Plan
Departure
Patient Disposition: Home (Routine Discharge)
Date of Disposition: 03/17/25
Time of Disposition: 11:13
Patient with high blood pressure during this ER visit?: Yes
Discharge Problem:
Acute anterior epistaxis
Instructions: Nosebleeds (DC)
Prescriptions:
No Action
aspirin 81 MG tablet,delayed release (DR/EC)
81 mg PO DAILY
atorvastatin 80 MG tablet
80 mg PO QPM
famotidine 40 MG tablet
40 mg PO DAILY
clopidogrel 75 MG tablet
75 mg PO DAILY Qty: 90 3RF
furosemide 40 MG tablet
40 mg PO BID
carvedilol 12.5 MG tablet
12.5 mg PO BID
isosorbide mononitrate 30 MG tablet extended release 24 hr
30 mg PO HS
amlodipine 10 MG tablet
10 mg PO DAILY
irbesartan 150 MG tablet
150 mg PO DAILY
Novolin 70/30 U-100 Insulin 100 unit/mL (70-30) Suspension
45 unit SC DAILY
Novolin 70/30 U-100 Insulin 100 unit/mL (70-30) Suspension
35 unit SC HS
acetaminophen-codeine 300-15 mg tablet
1 tab PO Q8H PRN (Reason: Pain) Qty: 6 0RF
Referrals:
Darrius Adames MD [Active, Otology] - Call in 1-3 days for appt
Referral Note: ENT doctor
Jef Madsen MD [Family Provider, Family Practice]
Activity Restrictions/Additional Instructions:
You should call the ENT physician today to schedule follow-up appointment within the next 48 to 72 hours to have your packing removed. If for some reason they are not able to see you in that timeframe you should return to the emergency room to have
your packing removed�it is very important that the packing does not remain in place for longer than 3 days to prevent any issues with infection. If you notice significant bleeding around the packing or swallowing a lot of blood or if you develop
any other symptoms that are concerning please return to the ER immediately.
Thank you for visiting the Emergency Department at [facility].
1. Please schedule a follow up appointment as directed. Call first thing tomorrow morning to make an appointment.
2. If indicated, please take your medications as instructed and indicated on discharge paperwork.
3. If any of your symptoms do not improve, or persist, or become more severe within 6-12 hours, please return to the emergency department for further care.
4. Please return to the emergency department if you develop a headache, neck pain/stiffness, fever greater than 100.4F, chest pain, shortness of breath, persistent nausea, vomiting, slurred speech, difficulty walking, numbness/tingling, weakness,
signs of infection or any other symptoms that are worrisome to you.
Please call [phone] if you have any questions.
Interventions
Interventions:
*Risk Screen - Suicide Last Done: 03/17/25 09:10
*General Assessment Last Done: 03/17/25 09:10
*Neglect/Abuse Screening Last Done: 03/17/25 09:10
*ED- Fall Risk Assessment Last Done: 03/17/25 10:24
*ED COVID-19 Vaccine History Last Done: 03/17/25 10:24
ED-EENT Assessment Last Done: 03/17/25 10:00
Discharge Date and Time
Print Language: HUNGARIAN
[2025-03-17 10:32] VITALS: BP 162/79
== END 2025-03-17 11:23 | disposition home or self-care (01) ==
LOC: EMR 09:01
PROVIDERS: EMERGENCY PHYSICIAN Emergency Medicine; FAMILY PHYSICIAN Family Medicine
DX: R04.0 Epistaxis (principal); E11.9 Type 2 diabetes mellitus without complications; E78.00 Pure hypercholesterolemia, unspecified; I10 Essential (primary) hypertension; I25.10 Atherosclerotic heart disease of native coronary artery without angina pectoris; Z95.5 Presence of coronary angioplasty implant and graft; Z87.891 Personal history of nicotine dependence; Z79.82 Long term (current) use of aspirin; Z79.02 Long term (current) use of antithrombotics/antiplatelets
CPT/HCPCS: 30901; 99282

== ENCOUNTER → 2025-03-23 09:09 | Outpatient (REF) | payer OTHER, SELFPAY ==
[2025-03-23 10:25] LABS: Hematocrit 40.7 % (39.0-52.0); Hemoglobin 13.6 g/dL (13.0-18.0); Mean Corp Hgb Conc. 33.4 g/dL (33.0-37.0); Mean Corpuscular Volume 86.4 fL (80.0-94.0); Nucleated Red Blood Cells % 0 % (-); Platelet Count 110 10^3/uL (130-400); Red Cell Dist. Width 13.4 % (11.5-14.5)
[2025-03-23 10:28] LABS: INR 1.11; PT 14.6 Sec (11.4-14.6)
[2025-03-23 10:29] LABS: APTT 29.1 Sec (23.4-35.0)
[2025-03-23 10:46] LABS: ALT (SGPT) 34 U/L (0-50); AST (SGOT) 29 U/L (17-59); Albumin 4.0 g/dl (3.5-5.0); Alkaline Phosphatase 67 U/L (38-126); Blood Urea Nitrogen 19 mg/dl (9-20); Calcium 9.3 mg/dl (8.4-10.2); Carbon Dioxide 30 mmol/L (22-30); Chloride 102 mmol/L (98-107); GGTP 74 U/L (15-73); Glucose 302 mg/dl (70-99); LDH 214 U/L (120-246); Potassium 4.8 mmol/L (3.5-5.1); Sodium 138 mmol/L (135-145); Total Protein 7.1 g/dl (6.3-8.2); eGFR > 60.00
[2025-03-24 16:27] LABS: AFP Male/Tumor Marker 2.66 ng/ml
== END ==
LOC: REG 09:09
PROVIDERS: ATTENDING PHYSICIAN Radiology Diagnostic Radiology; FAMILY PHYSICIAN Family Medicine
DX: C22.0 Liver cell carcinoma (principal); Z00.6 Encounter for examination for normal comparison and control in clinical research program
CPT/HCPCS: 36415; 80053; 82105; 82977; 83615; 85025; 85610; 85730

== ENCOUNTER → 2025-03-31 06:46 | Outpatient (REF) | payer OTHER, SELFPAY ==
[2025-03-31 07:55] LABS: Hematocrit 40.2 % (39.0-52.0); Hemoglobin 13.6 g/dL (13.0-18.0); Mean Corp Hgb Conc. 33.8 g/dL (33.0-37.0); Mean Corpuscular Volume 82.9 fL (80.0-94.0); Nucleated Red Blood Cells % 0 % (-); Platelet Count 94 10^3/uL (130-400); Red Cell Dist. Width 13.4 % (11.5-14.5)
[2025-03-31 08:02] LABS: INR 1.14; PT 14.9 Sec (11.4-14.6)
[2025-03-31 08:03] LABS: APTT 27.2 Sec (23.4-35.0)
[2025-03-31 08:04] LABS: ALT (SGPT) 208 U/L (0-50); AST (SGOT) 132 U/L (17-59); Albumin 3.7 g/dl (3.5-5.0); Alkaline Phosphatase 93 U/L (38-126); Blood Urea Nitrogen 26 mg/dl (9-20); Calcium 9.6 mg/dl (8.4-10.2); Carbon Dioxide 28 mmol/L (22-30); Chloride 100 mmol/L (98-107); GGTP 133 U/L (15-73); Glucose 431 mg/dl (70-99); LDH 298 U/L (120-246); Potassium 4.2 mmol/L (3.5-5.1); Sodium 135 mmol/L (135-145); Total Protein 6.8 g/dl (6.3-8.2); eGFR > 60.00
[2025-03-31 08:48] LABS: AFP Male/Tumor Marker 3.57 ng/ml
== END ==
LOC: REG 06:46
PROVIDERS: ATTENDING PHYSICIAN Physician Assistant Medical; FAMILY PHYSICIAN Family Medicine
DX: C22.0 Liver cell carcinoma (principal); Z00.6 Encounter for examination for normal comparison and control in clinical research program
CPT/HCPCS: 36415; 80053; 82105; 82977; 83615; 85025; 85610; 85730

== ENCOUNTER → 2025-05-13 07:33 | Outpatient (REF) | payer OTHER, SELFPAY | LOC: RCS 07:33 | PROVIDERS: ATTENDING PHYSICIAN Internal Medicine Cardiovascular Disease; FAMILY PHYSICIAN Family Medicine | DX: I10 Essential (primary) hypertension (principal); I35.0 Nonrheumatic aortic (valve) stenosis; R06.02 Shortness of breath | CPT/HCPCS: 93306; Q9950 ==

== ENCOUNTER 2025-06-11 23:46 | Emergency (ER) | payer OTHER, SELFPAY ==
[2025-06-12] VITALS: BP 176/93
--- NOTE | 2025-06-12 00:29 | ED.GENMED ---
History of Present Illness
General
Chief Complaint: Facial Problem
Source: patient
Exam Limitations: none
Time Seen by Provider: 06/12/25 00:14
History of Present Illness
History of Present Illness:
Note:
CHIEF COMPLAINT(S)
Left ear pain with a lump near the tragus and cramps extending to the face and shoulder.
HISTORY OF PRESENT ILLNESS
The patient is a 69-year-old male who awoke this morning with pain on the left side of his ear, near the tragus, accompanied by a lump. Throughout the day, the discomfort worsened. The patient reported a cramp-like sensation beginning near the ear,
extending down the side of the face, and into the shoulder. He described the experience as fannie to a leg cramp, stating, 'It stopped me in my tracks.' This cramp occurred twice while performing household tasks and has not recurred. No fever or pain
inside the ear was reported. Upon examination, there is tenderness in the area of what appears to be a preauricular lymph node, though no signs of ear infection were noted.
PAST MEDICAL AND SURGICAL HISTORY
The patient has been treated for cancer of his liver, and his current treatment involves care at the [facility], including procedures such as crystal embolization for tumor management. The patient reports adverse reactions to medication during
past treatments, particularly oxycodone and gabapentin for pain management post-procedure. He experiences severe pain due to nerve reactions from the procedure.
SOCIAL DETERMINANTS AFFECTING HEALTH
The patient reports taking care of his , who has been bedridden and reliant on care for two and a half years, which seems to be a significant responsibility in his household.
MEDICATIONS
The patient has previously been prescribed oxycodone and gabapentin for managing pain post-cancer treatment, but prefers using extra strength Tylenol for pain relief occasionally.
PHYSICAL EXAM
General: Alert, no acute distress. Obese
Skin: Warm, dry.
Head: Normocephalic, atraumatic with tenderness in the preauricular area on the left side. Small palpable mass suspected to be preauricular lymph node
Neck: Supple, trachea midline. No cervical lymphadenopathy.
Eye Ears, Nose, Mouth and Throat: Oral mucosa moist. Tender, but no erythema noted. No vesicles noted, TM normal, external auditory canal normal
Cardiovascular: Normal peripheral perfusion, no edema.
Respiratory: Respirations are non-labored.
Gastrointestinal: Abdomen nondistended.
Back: Normal range of motion, normal alignment.
Musculoskeletal: Normal range of motion, normal strength. No noted spasms during the visit.
Neurological: Alert and oriented to person, place, time, and situation, no focal neurological deficit observed.
Psychiatric: Cooperative, appropriate mood & affect.
PROBLEM LIST
Acute Problems:
1. Preauricular lymphadenopathy on the left side
2. Local pain and tenderness near the left tragus
3. Muscle cramping extending to shoulder
Chronic Problems:
1. Hepatic tumor (receiving care)
PLAN
1. Administer a dose of antibiotics to address potential lymph node infection.
2. Prescribe antibiotics for continuation at home.
3. Advise the use of warm compresses to promote blood flow to the swollen lymph node.
4. Encourage regular intake of extra strength Tylenol every few hours to manage pain as needed.
DIFFERENTIAL DIAGNOSIS
The Differential Diagnosis includes, in no particular order and is not limited to:
1. Preauricular lymphadenopathy
2. Parotitis
3. Trigeminal neuralgia
4. Temporomandibular joint disorder
5. Dental infection
6. Herpes Zoster
7. Parotid gland inflammation
8. Cervical radiculopathy
9. Mumps (unlikely but considered due to glandular symptoms)
10. Facial muscle spasm due to stress or overuse
Disposition:
SUMMARY OF ENCOUNTER
The patient, a 69-year-old male, presented with swelling anterior to his left tragus and a recent history of an upper respiratory infection. Examination revealed a clearly tender preauricular lymph node without signs of varicella rash or
abnormalities in the tympanic membrane or ear canal. Lymphadenitis was suspected due to the presentation of symptoms. Treatment with amoxicillin-clavulanate was commenced, along with recommendations for warm compresses and pain management.
ASSESSMENT
The patient likely presents with preauricular lymphadenitis, potentially secondary to a recent upper respiratory infection.
PLAN
1. Prescribe amoxicillin-clavulanate (Augmentin) to address potential bacterial involvement in the lymphadenitis.
2. Recommend warm compresses to the affected area.
3. Suggest use of analgesics for pain management as needed.
MEDICATION RECONCILIATION
- Prescribe amoxicillin-clavulanate (Augmentin) for infection management.
MEDICAL DECISION MAKING
1. Number and Complexity of Problems Addressed:
Chronic conditions affecting care: Hepatic tumor under treatment. Differential diagnosis includes preauricular lymphadenopathy, parotitis, trigeminal neuralgia, temporomandibular joint disorder, dental infection, herpes zoster, parotid gland
inflammation, cervical radiculopathy, mumps, facial muscle spasm.
2. Data:
- Category 1: Tests and documents reviewed included examination of the tympanic membrane and external ear canal, which appeared normal.
-Risk:
Prescription drug management initiated with antibiotics.
Consideration of Admission/Observation: Escalation of care including admission/observation was considered given the complexity and risk of the patients presenting complaint, exam findings, and/or their underlying comorbidities. However, ultimately I
feel the patient is safe for outpatient management with close follow up. Reasoning: Work-up reassuring, does not reveal any acute life/organ threatening processes, patients symptoms well controlled upon reevaluation, reexamination is reassuring,
vitals are stable, patient agreeable with discharge, reliable for follow-up.
DIAGNOSIS
- Preauricular lymphadenitis, ICD-10: L04.0
- History of hepatic tumor, ICD-10: C22.9
Past History
Past History
ED Past Medical History: CAD, GERD (Hiatal hernia), HTN, Hypercholesterolemia, IDDM and Other (Obesity, hepatocellular carcinoma)
ED Past Surgical History: Cardiac (PTCA with stent right coronary artery September 2014. Stent �2 LAD January 2016) and Cholecystectomy
Social History
Tobacco: Former smoker
Alcohol: None
Drug: None
Personal:
Living: with family
Employment: Employed
Family History
Family History: Diabetes and Hypertension; Negative Early CAD
Phy Exam
Physical Exam
Physical Exam:
.
Course
Orders/Labs/Results
Orders:
Orders
06/12/25 00:28
Acetaminophen [Tylenol] 1,000 mg PO NOW STA
Amoxicillin 875 mg/Clav 125 mg [Augmentin 875 mg/125 mg] 1 tablet PO NOW STA
Vital Signs
Initial and Last Documented VS:
Initial Vital Signs
Temp Pulse Resp BP Pulse Ox
98.4 F 60 18 176/93 99
06/12/25 00:00 06/12/25 00:00 06/12/25 00:00 06/12/25 00:00 06/12/25 00:00
Last Documented Vital Signs
Temp Pulse Resp BP Pulse Ox
98.4 F 60 18 176/93 99
06/12/25 00:00 06/12/25 00:00 06/12/25 00:00 06/12/25 00:00 06/12/25 00:31
*Pulse Oximetry
SaO2: 99
Oxygen Mode of Delivery: Room air
Patient hypoxic: no
*Critical Care Note
Total Time (30-74mins, 75-104mins- exclusive of procedures): Not Applicable
ED Attending Note
-
Portions of this chart may have been created with voice recognition software.� Occasional wrong word or��sound alike� substitutions may have occurred due to the inherent limitations of voice recognition software.
Discharge Plan
Departure
Patient Disposition: Home (Routine Discharge)
Date of Disposition: 06/12/25
Time of Disposition: 00:30
Patient with high blood pressure during this ER visit?: Yes
Discharge Problem:
Acute lymphadenitis
Instructions: Swollen lymph nodes in adults, BLOOD PRESSURE
Prescriptions:
New
amoxicillin-pot clavulanate 875-125 mg tablet
1 tab PO BID Qty: 14 0RF
No Action
aspirin 81 MG tablet,delayed release (DR/EC)
81 mg PO DAILY
atorvastatin 80 MG tablet
80 mg PO QPM
famotidine 40 MG tablet
40 mg PO DAILY
clopidogrel 75 MG tablet
75 mg PO DAILY Qty: 90 3RF
furosemide 40 MG tablet
40 mg PO BID
carvedilol 12.5 MG tablet
12.5 mg PO BID
isosorbide mononitrate 30 MG tablet extended release 24 hr
30 mg PO HS
amlodipine 10 MG tablet
10 mg PO DAILY
irbesartan 150 MG tablet
150 mg PO DAILY
Novolin 70/30 U-100 Insulin 100 unit/mL (70-30) Suspension
45 unit SC DAILY
Novolin 70/30 U-100 Insulin 100 unit/mL (70-30) Suspension
35 unit SC HS
acetaminophen-codeine 300-15 mg tablet
1 tab PO Q8H PRN (Reason: Pain) Qty: 6 0RF
Activity Restrictions/Additional Instructions:
See your doctor in the next 3 to 5 days for follow-up and reevaluation if symptoms persist. Apply warm compresses as discussed and use Tylenol for pain control. Return immediately for redness, rash, blistering rash, ear pain, fevers or any other
concerns.
Interventions
Interventions:
*Risk Screen - Suicide Last Done: 06/12/25 00:03
*General Assessment Last Done: 06/12/25 00:03
*Neglect/Abuse Screening Last Done: 06/12/25 00:03
*ED- Fall Risk Assessment Last Done: 06/12/25 00:03
*ED COVID-19 Vaccine History Last Done: 06/12/25 00:03
*ED Influenza Vaccine History Last Done: 06/12/25 00:03
*Nursing Disposition Last Done: 06/12/25 00:36
ED- Neurological Assessment Last Done: 06/12/25 00:35
ED-Skin Assessment Last Done: 06/12/25 00:35
Discharge Date and Time
Discharge Date/Time: 06/12/25 00:35
Print Language: DANISH
[2025-06-12] MEDS: AUGMENTIN 875 MG/125 MG 1 TABLET PO (00:34)
[2025-06-12] MEDS: TYLENOL 1000 MG PO (00:34)
== END 2025-06-12 00:35 | disposition home or self-care (01) ==
LOC: EMR 23:46
PROVIDERS: EMERGENCY PHYSICIAN Emergency Medicine; FAMILY PHYSICIAN Family Medicine
DX: L04.0 Acute lymphadenitis of face, head and neck (principal); C22.8 Malignant neoplasm of liver, primary, unspecified as to type; E10.9 Type 1 diabetes mellitus without complications; I25.10 Atherosclerotic heart disease of native coronary artery without angina pectoris; I10 Essential (primary) hypertension; E78.00 Pure hypercholesterolemia, unspecified; K21.9 Gastro-esophageal reflux disease without esophagitis; K44.9 Diaphragmatic hernia without obstruction or gangrene; Z79.4 Long term (current) use of insulin; Z79.82 Long term (current) use of aspirin; Z79.02 Long term (current) use of antithrombotics/antiplatelets; Z95.5 Presence of coronary angioplasty implant and graft; Z87.891 Personal history of nicotine dependence; Z83.3 Family history of diabetes mellitus; Z82.49 Family history of ischemic heart disease and other diseases of the circulatory system
CPT/HCPCS: 99283

== ENCOUNTER 2025-06-12 19:14 | Emergency (ER) | payer OTHER, SELFPAY ==
[2025-06-12 19:16] VITALS: BP 144/76
[2025-06-12 20:26] LABS: Glucose - Point of Care 212 mg/dl (70-99)
[2025-06-12 21:50] LABS: Hematocrit 38.3 % (39.0-52.0); Hemoglobin 12.3 g/dL (13.0-18.0); Mean Corp Hgb Conc. 32.1 g/dL (33.0-37.0); Mean Corpuscular Volume 84.9 fL (80.0-94.0); Nucleated Red Blood Cells % 0 % (-); Platelet Count 154 10^3/uL (130-400); Red Cell Dist. Width 14.1 % (11.5-14.5)
[2025-06-12 22:01] LABS: ALT (SGPT) 44 U/L (0-50); AST (SGOT) 45 U/L (17-59); Albumin 4.3 g/dl (3.5-5.0); Alkaline Phosphatase 140 U/L (38-126); Blood Urea Nitrogen 16 mg/dl (9-20); Calcium 9.1 mg/dl (8.4-10.2); Carbon Dioxide 35 mmol/L (22-30); Chloride 98 mmol/L (98-107); Glucose 176 mg/dl (70-99); Potassium 3.5 mmol/L (3.5-5.1); Sodium 138 mmol/L (135-145); Total Protein 8.4 g/dl (6.3-8.2); eGFR > 60.00
--- NOTE | 2025-06-12 22:27 | ED.GENMED ---
History of Present Illness
General
Chief Complaint: Facial Problem
Source: patient
Exam Limitations: none
Time Seen by Provider: 06/12/25 22:09
Nursing documentation reviewed up to this point in time: agreed with
History of Present Illness
History of Present Illness:
Patient presents to ED secondary to worsening left facial pain with swelling over the past 2 days. Patient woke up with this sensation yesterday. Patient was evaluated ED last night and was diagnosed with nonspecific lymphadenitis and was started
antibiotics, which she has been taking for the past 24 hours, without relief in symptoms. Denies fever or chills. Denies trauma. Denies open wound. Denies toothache. Denies neck pain or difficulty swallowing. Denies shortness of breath.
Denies recent illness. Denies recent change in medications or diet. Denies previous history of similar symptoms. Patient does report decreased hearing in his left ear. Denies headache.
Past History
Past History
ED Past Medical History: CAD, GERD (Hiatal hernia), HTN, Hypercholesterolemia, IDDM and Other (Obesity, hepatocellular carcinoma)
ED Past Surgical History: Cardiac (PTCA with stent right coronary artery September 2014. Stent �2 LAD January 2016) and Cholecystectomy
Social History
Tobacco: Former smoker
Alcohol: None
Drug: None
Personal:
Living: with family
Employment: Employed
Family History
Family History: Diabetes and Hypertension; Negative Early CAD
Review of Systems
Review of Systems
Allergies reviewed?: Yes
All Other Systems: ROS reviewed and negative except as documented in HPI and ROS
Constitutional: Reports no symptoms; Denies fever or chills
Respiratory: Reports no symptoms; Denies trouble breathing
ABD/GI: Reports no symptoms; Denies nausea or vomiting
Musculoskeletal: Reports no symptoms
Skin: Reports other (Facial pain with swelling)
Neurological: Reports no symptoms
Phy Exam
Physical Exam
Physical Exam:
Physical Exam
General: mild painful distress, not acutely ill. afebrile
Head: nc/at. eomi
Neck: supple. normal range of motion. no jvd. no cervical lymph node enlargement
Abdomen: normal bowel sounds. not tender.
Neuro: alert and oriented x 3. no focal neurological deficits
Skin: left facial swelling/tenderness noted anterior to left ear, without erythema/ecchymosis
Psychiatric: well kept. interactive and cooperative
Extremities: no edema. no calf tenderness.
Course
Orders/Labs/Results
Orders:
Orders
06/12/25 21:39
CMP [Comprehensive Metabolic Panel] Urgent
Complete Blood Count/With Diff Urgent
06/12/25 22:26
CT Facial Bones W/ Iv Contrast Urgent
Comment:
Reason For Exam: left facial pain/swelling
Ketorolac [Toradol] 15 mg IV NOW STA
06/13/25 00:18
Dexamethasone Pf [Decadron] 10 mg PO NOW STA
06/13/25 00:40
Acetaminophen [Tylenol] 500 mg .ROUTE .STK-MED ONE
06/13/25 00:41
Acetaminophen [Tylenol] 1,000 mg PO NOW STA
Abnormal Lab Results
06/12/25 06/12/25
20:25 21:39
RBC 4.51 L 10^6/uL
(4.70-6.10)
Hgb 12.3 L g/dL
(13.0-18.0)
Hct 38.3 L %
(39.0-52.0)
MCHC 32.1 L g/dL
(33.0-37.0)
Absolute Lymphs (auto) 0.6 L 10^3/uL
(1.2-3.4)
Neutrophils % 76.9 H %
(42.2-75.2)
Lymphocytes % 12.5 L %
(20.5-51.1)
Carbon Dioxide 35 H mmol/L
(22-30)
Glucose 176 H mg/dl
(70-99)
Alkaline Phosphatase 140 H U/L
(38-126)
Total Protein 8.4 H g/dl
(6.3-8.2)
POC Glucose 212 H mg/dl
(70-99)
06/12/25 21:39
06/12/25 21:39
Vital Signs
Initial and Last Documented VS:
Initial Vital Signs
Temp Pulse Resp BP Pulse Ox
97.5 F 72 18 144/76 96
06/12/25 19:16 06/12/25 19:16 06/12/25 19:16 06/12/25 19:16 06/12/25 19:16
Last Documented Vital Signs
Temp Pulse Resp BP Pulse Ox
97.5 F 72 20 157/91 100
06/12/25 19:16 06/13/25 00:45 06/13/25 00:45 06/13/25 00:45 06/13/25 00:45
MDM/Problems Addressed
MDM/Problems Addressed:
CT report reviewed and discussed with patient. Patient will be advised to continue already prescribed biotics. Patient states that he has OxyContin, already at home, prescribed by his oncologist, which he will take. In addition, patient has a
follow-up appointment with his oncologist in 2 weeks at [facility]
*Pulse Oximetry
SaO2: 96
Oxygen Mode of Delivery: Room air
Patient hypoxic: no
*Critical Care Note
Total Time (30-74mins, 75-104mins- exclusive of procedures): Not Applicable
ED Attending Note
-
Portions of this chart may have been created with voice recognition software.� Occasional wrong word or��sound alike� substitutions may have occurred due to the inherent limitations of voice recognition software.
Discharge Plan
Departure
Patient Disposition: Home (Routine Discharge)
Date of Disposition: 06/13/25
Time of Disposition: 00:19
Patient with high blood pressure during this ER visit?: Yes
Condition: Fair
Discharge Problem:
Acute lymphadenitis
Instructions: Swollen lymph nodes in adults
Prescriptions:
No Action
aspirin 81 MG tablet,delayed release (DR/EC)
81 mg PO DAILY
atorvastatin 80 MG tablet
80 mg PO QPM
famotidine 40 MG tablet
40 mg PO DAILY
clopidogrel 75 MG tablet
75 mg PO DAILY Qty: 90 3RF
furosemide 40 MG tablet
40 mg PO BID
carvedilol 12.5 MG tablet
12.5 mg PO BID
isosorbide mononitrate 30 MG tablet extended release 24 hr
30 mg PO HS
amlodipine 10 MG tablet
10 mg PO DAILY
irbesartan 150 MG tablet
150 mg PO DAILY
Novolin 70/30 U-100 Insulin 100 unit/mL (70-30) Suspension
45 unit SC DAILY
Novolin 70/30 U-100 Insulin 100 unit/mL (70-30) Suspension
35 unit SC HS
amoxicillin-pot clavulanate 875-125 mg tablet
1 tab PO BID Qty: 14 0RF
Referrals:
Jef Madsen MD [Family Provider, Family Practice]
Activity Restrictions/Additional Instructions:
As discussed, please continue to take already prescribed antibiotics and follow-up with your primary care physician or oncologist for reevaluation.
Interventions
Interventions:
*Risk Screen - Suicide Last Done: 06/12/25 19:16
*General Assessment Last Done: 06/12/25 20:31
*Neglect/Abuse Screening Last Done: 06/12/25 20:31
*ED- Fall Risk Assessment Last Done: 06/12/25 20:31
*ED COVID-19 Vaccine History Last Done: 06/12/25 20:31
*ED Influenza Vaccine History Last Done: 06/12/25 20:31
*Nursing Disposition Last Done: 06/13/25 01:23
ED- Neurological Assessment Last Done: 06/12/25 20:31
ED-Skin Assessment Last Done: 06/12/25 20:31
Discharge Date and Time
Discharge Date/Time: 06/13/25 00:10
Print Language: BELARUSIAN
[2025-06-12] MEDS: TORADOL 15 MG IV (22:55)
[2025-06-12 23:00] VITALS: BP 159/94
[2025-06-13] MEDS: DECADRON 10 MG PO (00:36)
[2025-06-13] MEDS: TYLENOL 1000 MG PO (00:41)
[2025-06-13 00:45] VITALS: BP 157/91
== END 2025-06-13 00:10 | disposition home or self-care (01) ==
LOC: EMR 19:14
PROVIDERS: Emergency Medicine; EMERGENCY PHYSICIAN Emergency Medicine; FAMILY PHYSICIAN Family Medicine
DX: L04.9 Acute lymphadenitis, unspecified (principal); C22.0 Liver cell carcinoma; E10.9 Type 1 diabetes mellitus without complications; I25.10 Atherosclerotic heart disease of native coronary artery without angina pectoris; I10 Essential (primary) hypertension; E78.00 Pure hypercholesterolemia, unspecified; K21.9 Gastro-esophageal reflux disease without esophagitis; K44.9 Diaphragmatic hernia without obstruction or gangrene; H91.92 Unspecified hearing loss, left ear; Z79.4 Long term (current) use of insulin; Z79.82 Long term (current) use of aspirin; Z79.02 Long term (current) use of antithrombotics/antiplatelets; Z95.5 Presence of coronary angioplasty implant and graft; Z87.891 Personal history of nicotine dependence; Z83.3 Family history of diabetes mellitus; Z82.49 Family history of ischemic heart disease and other diseases of the circulatory system
CPT/HCPCS: 99284; 96374; 70487; 80053; 82962; 85025; Q9967

== ENCOUNTER 2025-06-13 19:03 | Observation (INO) | payer OTHER, SELFPAY ==
[2025-06-13] VITALS (18 sets, daily range): BP systolic 123–169; BP diastolic 63–91; BMI 41.9; BMI 42.3
[2025-06-13 08:54] LABS: Hematocrit 35.0 % (39.0-52.0); Hemoglobin 11.7 g/dL (13.0-18.0); Mean Corp Hgb Conc. 33.4 g/dL (33.0-37.0); Mean Corpuscular Volume 82.0 fL (80.0-94.0); Nucleated Red Blood Cells % 0 % (-); Platelet Count 119 10^3/uL (130-400); Red Cell Dist. Width 13.9 % (11.5-14.5)
[2025-06-13] MEDS: CARAFATE SUSPENSION 1 GM PO (09:10)
[2025-06-13 09:16] LABS: ALT (SGPT) 36 U/L (0-50); AST (SGOT) 36 U/L (17-59); Albumin 3.8 g/dl (3.5-5.0); Alkaline Phosphatase 131 U/L (38-126); Blood Urea Nitrogen 15 mg/dl (9-20); Calcium 8.8 mg/dl (8.4-10.2); Carbon Dioxide 30 mmol/L (22-30); Chloride 97 mmol/L (98-107); Estimated Creatinine Clearance 119 ml/min; Glucose 310 mg/dl (70-99); Potassium 3.8 mmol/L (3.5-5.1); Sodium 134 mmol/L (135-145); Total Protein 7.4 g/dl (6.3-8.2); eGFR > 60.00
[2025-06-13 09:19] LABS: Troponin I 0.021 ng/ml
[2025-06-13] MEDS: NITROSTAT (SUBLINGUAL) 0.4 MG SL (09:28)
[2025-06-13] MEDS: DILAUDID 1 MG IV ×2 (09:37→10:58)
[2025-06-13] MEDS: ZOFRAN 4 MG IV (09:37)
[2025-06-13 12:14] LABS: Troponin I 0.019 ng/ml
[2025-06-13] MEDS: DILAUDID 0.5 MG IV (14:51)
--- NOTE | 2025-06-13 15:16 | ED.GENMED ---
History of Present Illness
<Sulaiman Escobar DO - Last Filed: 06/13/25 15:17>
General
Chief Complaint: Chest Pain
Source: patient
Time Seen by Provider: 06/13/25 08:35
History of Present Illness
History of Present Illness:
Note:
CHIEF COMPLAINT(S)
Facial swelling and chest pain.
HISTORY OF PRESENT ILLNESS
The patient is a 69-year-old male with a history of cardiac stent placement, presenting with facial swelling and chest pain. The facial swelling began after a recent procedure, wherein computed tomography (CT) was performed, suggesting significant
swelling. To manage the pain, the patient was prescribed oxycodone. The patient reported taking oxycodone early this morning at approximately 5 AM. About an hour later, at around 6 AM, the patient started experiencing chest pain localized towards
the right side. The patient denied belching or nausea but reported mild shortness of breath. The patient has a history of heart issues, including two previously placed stents. The primary concern is to determine whether the chest pain is of cardiac
origin or related to gastrointestinal irritation from the medication. An electrocardiogram (EKG) performed showed no signs indicative of a myocardial infarction. The possibility of gastrointestinal irritation due to oxycodone use was considered, and
the patient was administered a gastrointestinal cocktail to assess for symptom relief.
PAST MEDICAL AND SURGICAL HISTORY
History of cardiac stent placement.
CHRONIC MEDICAL CONDITIONS SIGNIFICANTLY AFFECTING CARE
Cardiovascular disease with previous stent placements.
REVIEW OF SYSTEMS
- Cardiovascular: Chest pain, mild shortness of breath.
- Gastrointestinal: No nausea, no belching.
PHYSICAL EXAM
General: Alert, no acute distress.
Skin: Warm, dry.
Head: Normocephalic, atraumatic.
Neck: Supple, trachea midline.
Eye Ears, nose, mouth and throat: Oral mucosa moist.
Cardiovascular: Normal peripheral perfusion, No edema.
Respiratory: Respirations are non-labored.
Gastrointestinal: Abdomen nondistended
Back: Normal range of motion, Normal alignment.
Musculoskeletal: Normal ROM, normal strength.
Neurological: Alert and oriented to person, place, time, and situation, No focal neurological deficit observed.
Psychiatric: Cooperative, appropriate mood & affect.
PROBLEM LIST
Acute problems:
1. Chest pain
2. Facial swelling
Chronic problems:
1. Cardiovascular disease
PLAN
1. Perform cardiac enzyme tests to rule out myocardial infarction.
2. Obtain a chest X-ray to assess for any additional cardiac or pulmonary concerns.
3. Administer a gastrointestinal cocktail to evaluate if chest pain is related to gastrointestinal side effects from oxycodone.
4. Review old medical records for comparison.
5. Follow up with Ear, Nose, and Throat (ENT) specialists to evaluate facial swelling.
DIFFERENTIAL DIAGNOSIS
The Differential Diagnosis includes, in no particular order and is not limited to:
1. Myocardial infarction
2. Gastroesophageal reflux disease (GERD)
3. Medication-induced gastrointestinal irritation
4. Aortic dissection
5. Pulmonary embolism
6. Pneumonia
7. Musculoskeletal pain
8. Costochondritis
9. Pericarditis
10. Angina
Disposition:
SUMMARY OF ENCOUNTER
The patient is a 69-year-old male who presented to the emergency department with right-sided chest pain following the ingestion of oxycodone. The patient has a history of cardiovascular disease with cardiac stent placement. Initial concern was
raised about the potential cardiac origin of the chest pain or gastrointestinal irritation induced by medication. An EKG conducted showed no myocardial infarction signs. A CT of the chest was performed to rule out pulmonary embolism (PE) and other
complications possibly related to his medical history. CT pending.
ASSESSMENT
1. Right-sided chest pain
2. Considerations for pulmonary embolism or gastrointestinal irritation secondary to medication
PLAN
1. Perform CT imaging of the chest to evaluate for pulmonary embolism or complication secondary to existing medical conditions.
2. Monitor the patient for symptom relief and potential side effects of medication.
INDEPENDENT REVIEW OF LABS AND INTERPRETATION OF TESTS
My independent interpretation of the EKG indicates no signs of myocardial infarction.
MEDICATION RECONCILIATION
The patient reported taking oxycodone for pain management.
MEDICAL DECISION MAKING
- Number and Complexity of Problems Addressed: Chronic conditions affecting care include cardiovascular disease with previous stent placements. Differential Diagnoses: Myocardial infarction, gastroesophageal reflux disease (GERD), medication-induced
gastrointestinal irritation, aortic dissection, pulmonary embolism, pneumonia, musculoskeletal pain, costochondritis, pericarditis, and angina.
- Data:
Category 1:
My independent interpretation of the EKG indicates no acute myocardial infarction signs. A CT of the chest was performed to rule out pulmonary embolism and other conditions.
- Risk:
Consideration of Admission/Observation: Escalation of care including admission/observation was considered given the complexity and risk of the patients presenting complaint and underlying comorbidities. However, ultimately outpatient management is
deemed safe with close follow-up. Reasoning: Work-up is reassuring, patients symptoms are well-controlled upon reevaluation, reexamination is reassuring, vitals are stable, the patient is agreeable with discharge, and reliable for follow-up.
DIAGNOSIS
1. Chest pain (R07.9)
2. History of cardiovascular disease with previous stent placements (I25.10)
Patient signed out at [address] Romano pending [address] scan
Past History
<Sulaiman Escobar DO - Last Filed: 06/13/25 15:17>
Past History
ED Past Medical History: CAD, GERD (Hiatal hernia), HTN, Hypercholesterolemia, IDDM and Other (Obesity, hepatocellular carcinoma)
ED Past Surgical History: Cardiac (PTCA with stent right coronary artery September 2014. Stent �2 LAD January 2016) and Cholecystectomy
Social History
Tobacco: Former smoker
Alcohol: None
Drug: None
Personal:
Living: with family
Employment: Employed
Family History
Family History: Diabetes and Hypertension; Negative Early CAD
Phy Exam
<Sulaiman Escobar DO - Last Filed: 06/13/25 15:17>
Physical Exam
Physical Exam:
.
Scores
<Danielle Romano MD - Last Filed: 06/14/25 11:01>
Heart Score for Chest Pain Patients
STEMI patient?: Not applicable
Course
<Sulaiman Escobar DO - Last Filed: 06/13/25 15:17>
Orders/Labs/Results
Orders:
Orders
06/13/25
Electrocardiogram (*1) Stat
Comment: DONE
06/13/25 08:20
EKG [Electrocardiogram (*1)] Urgent
Reason for Study: Chest Pain
06/13/25 08:21
EKG- Treatment ONCE
06/13/25 08:49
Complete Blood Count/With Diff Urgent
Comprehensive Metabolic Panel Urgent
Troponin I Urgent
06/13/25 09:06
Sucralfate Suspension [Carafate Suspension] 1 gm PO NOW STA
Sucralfate [Carafate] 1 gram .ROUTE .STK-MED ONE
06/13/25 09:25
Nitroglycerin Sublingual [Nitrostat (Sublingual)] 0.4 mg .ROUTE .STK-MED ONE
06/13/25 09:28
Nitroglycerin Sublingual [Nitrostat (Sublingual)] 0.4 mg SL NOW STA
06/13/25 09:33
HYDROmorphone [Dilaudid] 1 mg IV NOW STA
06/13/25 09:34
EKG [Electrocardiogram (*1)] Urgent
Reason for Study: Chest Pain
Electrocardiogram (*1) Urgent
Reason for Study: Chest Pain
EKG- Treatment ONCE
HYDROmorphone [Dilaudid] 1 mg .ROUTE .STK-MED ONE
Ondansetron Injectable [Zofran] 4 mg IV NOW STA
06/13/25 09:35
EKG- Treatment ONCE
06/13/25 09:41
EKG- Treatment ONCE
06/13/25 10:50
CR Chest - 2 Views Urgent
Comment:
Reason For Exam: cp
06/13/25 10:55
HYDROmorphone [Dilaudid] 1 mg IV NOW STA
06/13/25 11:36
Troponin I Urgent
06/13/25 14:21
CT Pe/abd/pel W Urgent
Reason For Exam: R cp, h/o hepatocellular Ca
06/13/25 14:48
HYDROmorphone [Dilaudid] 0.5 mg .ROUTE .STK-MED ONE
06/13/25 14:50
HYDROmorphone [Dilaudid] 0.5 mg IV NOW STA
06/13/25 Dinner
2000 calorie (17 carb) Diabetic
At Your Request: Full Participation
06/13/25 15:08
HYDROmorphone [Dilaudid] 0.5 mg IV NOW STA
06/13/25 18:35
Admit/Transfer Patient As Directed
Co-Sign Provider:
Level of Care: Observation services
Assign to:: Telemetry
Physician / Group: vanessa
Diagnosis: left rib pain
Reason for Telemetry: Arrhythmia
Date to Stop Telemetry: 06/16/25
Time to Stop Telemetry: 11:00
PRN Pain Medication Management As Directed
May give lesser potent ordered pain med per pt: Yes
preference::
Protocol:: Medication orders for pain may be administered in a
manner that supports deferring to patient preference
when the pt is:
- Requesting an ordered lesser potent pain medication.
Least to most potent pain medications are defined
as: acetaminophen < NSAID < tramadol < opioids
(morphine, oxycodone, hydromorphone).
- Requesting a lesser dose of the same medication IF
ORDERED.
- Requesting a less intrusive route of administration
if both routes are prescribed by the provider (PO <
IV).
06/13/25 18:36
Code Status As Directed
Resuscitation Status: Full Code
06/13/25 20:35
Amoxicillin 875 mg/Clav 125 mg [Augmentin 875 mg/125 mg] 1 tablet PO BID
Carvedilol [Coreg] 12.5 mg PO BID
Dextrose 50%-Water [Dextrose 50% Syringe] 12.5 grams IV [id number] PRN
Furosemide [Lasix] 40 mg PO BID
Glucagon [GlucaGen] 1 mg IM PRN PRN
HYDROmorphone [Dilaudid] 0.5 mg IV Q4HPRN PRN
Heparin 5,000 units SC Q12
06/13/25 20:35
Activity As Directed
Activity Level: As Tolerated
Bedside Glucose Monitoring As Directed
Frequency: AC&HS
Additional Instructions:: Change to q6h if pt on TPN, tube feeding or not eating
Vital Signs As Directed
Frequency: Per unit guidelines
Warm Compress [Heat Application] As Directed
Apply warm compress to (location):: left preauricular region
Compress Frequency:: PRN
Duration of Application: No longer than 20 minutes
DX Deep Vein Thrombosis Video Routine
06/13/25 21:12
Troponin I Q6H
06/13/25 22:00
ISOSORBIDE MONOnitrate ER [Imdur (Extended Release)] 30 mg PO HS
insulin NPH and regular human [Novolin 70/30 U-100 Insulin] 35 unit SC HS
06/14/25 02:39
Troponin I Q6H
06/14/25 07:30
Insulin Aspart Corrective Low [Novolog Flexpen-Low Resistance] See Protocol SC AC
06/14/25 07:53
Complete Blood Count/With Diff IN AM
Comprehensive Metabolic Panel IN AM
Glycohemoglobin (HgbA1c) IN AM
Troponin I Q6H
06/14/25 08:00
Amlodipine [Norvasc] 10 mg PO DAILY
Aspirin Low Dose EC [Aspir Low (Enteric Coated)] 81 mg PO DAILY
Clopidogrel Bisulfate [Plavix] 75 mg PO DAILY
Irbesartan [Avapro] 150 mg PO DAILY
famotidine 40 mg PO DAILY
insulin NPH and regular human [Novolin 70/30 U-100 Insulin] 45 unit SC DAILY
06/14/25 14:35
Troponin I Q6H
06/14/25 18:00
Atorvastatin [Lipitor] 80 mg PO QPM
06/16/25 11:00
DC Protocol for Telemetry ONCE
Abnormal Lab Results
06/13/25
08:49
WBC 3.6 L 10^3/uL
(4.8-10.8)
RBC 4.27 L 10^6/uL
(4.70-6.10)
Hgb 11.7 L g/dL
(13.0-18.0)
Hct 35.0 L %
(39.0-52.0)
Plt Count 119 L D 10^3/uL
(130-400)
Absolute Lymphs (auto) 0.4 L 10^3/uL
(1.2-3.4)
Immature Gran % 0.6 H %
(0-0.5)
Neutrophils % 87.6 H %
(42.2-75.2)
Lymphocytes % 10.1 L %
(20.5-51.1)
Sodium 134 L mmol/L
(135-145)
Chloride 97 L mmol/L
(98-107)
Glucose 310 H mg/dl
(70-99)
Alkaline Phosphatase 131 H U/L
(38126)
06/13/25 08:49
06/13/25 08:49
Vital Signs
Initial and Last Documented VS:
Initial Vital Signs
Temp Pulse Resp BP Pulse Ox
97.9 F 75 22 154/83 99
06/13/25 08:19 06/13/25 08:19 06/13/25 08:19 06/13/25 08:19 06/13/25 08:19
Last Documented Vital Signs
Temp Pulse Resp BP Pulse Ox
97.9 F 55 18 131/63 94
06/14/25 07:08 06/14/25 10:57 06/14/25 07:08 06/14/25 08:13 06/14/25 07:08
<Danielle Romano MD - Last Filed: 06/14/25 11:01>
Orders/Labs/Results
Orders:
Orders
06/13/25
Electrocardiogram (*1) Stat
Comment: DONE
06/13/25 08:20
EKG [Electrocardiogram (*1)] Urgent
Reason for Study: Chest Pain
06/13/25 08:21
EKG- Treatment ONCE
06/13/25 08:49
Complete Blood Count/With Diff Urgent
Comprehensive Metabolic Panel Urgent
Troponin I Urgent
06/13/25 09:06
Sucralfate Suspension [Carafate Suspension] 1 gm PO NOW STA
Sucralfate [Carafate] 1 gram .ROUTE .STK-MED ONE
06/13/25 09:25
Nitroglycerin Sublingual [Nitrostat (Sublingual)] 0.4 mg .ROUTE .STK-MED ONE
06/13/25 09:28
Nitroglycerin Sublingual [Nitrostat (Sublingual)] 0.4 mg SL NOW STA
06/13/25 09:33
HYDROmorphone [Dilaudid] 1 mg IV NOW STA
06/13/25 09:34
EKG [Electrocardiogram (*1)] Urgent
Reason for Study: Chest Pain
Electrocardiogram (*1) Urgent
Reason for Study: Chest Pain
EKG- Treatment ONCE
HYDROmorphone [Dilaudid] 1 mg .ROUTE .STK-MED ONE
Ondansetron Injectable [Zofran] 4 mg IV NOW STA
06/13/25 09:35
EKG- Treatment ONCE
06/13/25 09:41
EKG- Treatment ONCE
06/13/25 10:50
CR Chest - 2 Views Urgent
Comment:
Reason For Exam: cp
06/13/25 10:55
HYDROmorphone [Dilaudid] 1 mg IV NOW STA
06/13/25 11:36
Troponin I Urgent
06/13/25 14:21
CT Pe/abd/pel W Urgent
Reason For Exam: R cp, h/o hepatocellular Ca
06/13/25 14:48
HYDROmorphone [Dilaudid] 0.5 mg .ROUTE .STK-MED ONE
06/13/25 14:50
HYDROmorphone [Dilaudid] 0.5 mg IV NOW STA
06/13/25 Dinner
2000 calorie (17 carb) Diabetic
At Your Request: Full Participation
06/13/25 15:08
HYDROmorphone [Dilaudid] 0.5 mg IV NOW STA
06/13/25 18:35
Admit/Transfer Patient As Directed
Co-Sign Provider:
Level of Care: Observation services
Assign to:: Telemetry
Physician / Group: vanessa
Diagnosis: left rib pain
Reason for Telemetry: Arrhythmia
Date to Stop Telemetry: 06/16/25
Time to Stop Telemetry: 11:00
PRN Pain Medication Management As Directed
May give lesser potent ordered pain med per pt: Yes
preference::
Protocol:: Medication orders for pain may be administered in a
manner that supports deferring to patient preference
when the pt is:
- Requesting an ordered lesser potent pain medication.
Least to most potent pain medications are defined
as: acetaminophen < NSAID < tramadol < opioids
(morphine, oxycodone, hydromorphone).
- Requesting a lesser dose of the same medication IF
ORDERED.
- Requesting a less intrusive route of administration
if both routes are prescribed by the provider (PO <
IV).
06/13/25 18:36
Code Status As Directed
Resuscitation Status: Full Code
06/13/25 20:35
Amoxicillin 875 mg/Clav 125 mg [Augmentin 875 mg/125 mg] 1 tablet PO BID
Carvedilol [Coreg] 12.5 mg PO BID
Dextrose 50%-Water [Dextrose 50% Syringe] 12.5 grams IV [id number] PRN
Furosemide [Lasix] 40 mg PO BID
Glucagon [GlucaGen] 1 mg IM PRN PRN
HYDROmorphone [Dilaudid] 0.5 mg IV Q4HPRN PRN
Heparin 5,000 units SC Q12
06/13/25 20:35
Activity As Directed
Activity Level: As Tolerated
Bedside Glucose Monitoring As Directed
Frequency: AC&HS
Additional Instructions:: Change to q6h if pt on TPN, tube feeding or not eating
Vital Signs As Directed
Frequency: Per unit guidelines
Warm Compress [Heat Application] As Directed
Apply warm compress to (location):: left preauricular region
Compress Frequency:: PRN
Duration of Application: No longer than 20 minutes
DX Deep Vein Thrombosis Video Routine
06/13/25 21:12
Troponin I Q6H
06/13/25 22:00
ISOSORBIDE MONOnitrate ER [Imdur (Extended Release)] 30 mg PO HS
insulin NPH and regular human [Novolin 70/30 U-100 Insulin] 35 unit SC HS
06/14/25 02:39
Troponin I Q6H
06/14/25 07:30
Insulin Aspart Corrective Low [Novolog Flexpen-Low Resistance] See Protocol SC AC
06/14/25 07:53
Complete Blood Count/With Diff IN AM
Comprehensive Metabolic Panel IN AM
Glycohemoglobin (HgbA1c) IN AM
Troponin I Q6H
06/14/25 08:00
Amlodipine [Norvasc] 10 mg PO DAILY
Aspirin Low Dose EC [Aspir Low (Enteric Coated)] 81 mg PO DAILY
Clopidogrel Bisulfate [Plavix] 75 mg PO DAILY
Irbesartan [Avapro] 150 mg PO DAILY
famotidine 40 mg PO DAILY
insulin NPH and regular human [Novolin 70/30 U-100 Insulin] 45 unit SC DAILY
06/14/25 14:35
Troponin I Q6H
06/14/25 18:00
Atorvastatin [Lipitor] 80 mg PO QPM
06/16/25 11:00
DC Protocol for Telemetry ONCE
Abnormal Lab Results
06/13/25
08:49
WBC 3.6 L 10^3/uL
(4.8-10.8)
RBC 4.27 L 10^6/uL
(4.70-6.10)
Hgb 11.7 L g/dL
(13.0-18.0)
Hct 35.0 L %
(39.0-52.0)
Plt Count 119 L D 10^3/uL
(130-400)
Absolute Lymphs (auto) 0.4 L 10^3/uL
(1.2-3.4)
Immature Gran % 0.6 H %
(0-0.5)
Neutrophils % 87.6 H %
(42.2-75.2)
Lymphocytes % 10.1 L %
(20.5-51.1)
Sodium 134 L mmol/L
(135-145)
Chloride 97 L mmol/L
(98-107)
Glucose 310 H mg/dl
(70-99)
Alkaline Phosphatase 131 H U/L
(38-126)
06/13/25 08:49
06/13/25 08:49
Vital Signs
Initial and Last Documented VS:
Initial Vital Signs
Temp Pulse Resp BP Pulse Ox
97.9 F 75 22 154/83 99
06/13/25 08:19 06/13/25 08:19 06/13/25 08:19 06/13/25 08:19 06/13/25 08:19
Last Documented Vital Signs
Temp Pulse Resp BP Pulse Ox
97.9 F 55 18 131/63 94
06/14/25 07:08 06/14/25 10:57 06/14/25 07:08 06/14/25 08:13 06/14/25 07:08
<Sulaiman Escobar DO - Last Filed: 06/13/25 15:17>
*Pulse Oximetry
SaO2: 93
Oxygen Mode of Delivery: Room air
Patient hypoxic: yes
*Critical Care Note
Total Time (30-74mins, 75-104mins- exclusive of procedures): Not Applicable
<Danielle Romano MD - Last Filed: 06/14/25 11:01>
*Radiology
Radiology exam reviewed: radiology read reviewed
<Danielle Romano MD - Last Filed: 06/14/25 11:01>
Update Note
Update Note:
5:[address] shows no sign of PE or pleural effusion. Patient states he still having right lower chest wall/right upper abdominal pain. He is hesitant to go home due to the pain
ED Attending Note
<Sulaiman Escobar DO - Last Filed: 06/13/25 15:17>
-
Portions of this chart may have been created with voice recognition software.� Occasional wrong word or��sound alike� substitutions may have occurred due to the inherent limitations of voice recognition software.
Discharge Plan
Departure
Patient Disposition: Admit
Date of Disposition: 06/13/25
Time of Disposition: 17:56
Admit to: Med/Surg
Presentation/result/management discussed w/ accepting MD/DO: Hospitalist
Discharge Problem:
Intractable right-sided chest pain
Interventions
Interventions:
*Risk Screen - Suicide Last Done: 06/13/25 08:19
*General Assessment Last Done: 06/13/25 08:19
*Neglect/Abuse Screening Last Done: 06/13/25 08:19
*ED- Fall Risk Assessment Last Done: 06/13/25 08:51
*ED COVID-19 Vaccine History Last Done: 06/13/25 08:19
*ED Influenza Vaccine History Last Done: 06/13/25 08:19
*Nursing Disposition Last Done: 06/13/25 20:32
ED- Cardiac Assessment Last Done: 06/13/25 19:57
Discharge Date and Time
Discharge Date/Time: 06/13/25 20:32
--- NOTE | 2025-06-13 18:51 | HPS.HSE ---
Family Physician
-
Family Physician: Jef Madsen
Chief Complaint
-
pain under right rib
History of Present Illness
69-year-old male past medical history of CAD with history of RCA stent, moderate aortic stenosis, history of recurrent chest pain with negative troponins, type 2 diabetes, diabetic retinopathy, hypertension, hyperlipidemia, plaque psoriasis,
obesity, hepatocellular carcinoma status post chemoembolization in March, presenting with right-sided abdominal/chest pain under his right rib. Pain started today and was severe and throbbing. He never had pain like this before. He denies any
fevers or chills, cough, shortness of breath, nausea or vomiting, sweating or diarrhea. He denies any changes in his bowel movements.
Patient had chemoembolization for hepatocellular carcinoma in March and after that he did have abdominal pain rating to his shoulder. He was prescribed oxycodone and gabapentin by his oncologist and only had to take a few doses and never had
recurrence of the pain.
He came to the emergency room yesterday for swelling in front of his left ear attributed to lymphadenitis and was started on Augmentin without improvement.
He has chronic lower extreme edema which stable. He has lost significant amount of weight.
He denies smoking or alcohol use.
Medical History
Past Medical History
Past Medical History: Reports Other (CAD with history of RCA stent, moderate aortic stenosis, history of recurrent chest pain with negative troponins, type 2 diabetes, diabetic retinopathy, hypertension, hyperlipidemia, plaque psoriasis, obesity,
hepatocellular carcinoma status post chemoembolization in March, )
Past Surgical History: Reports Other (Cholecystectomy)
Social History
Tobacco: Non-smoker
Alcohol: None
Drug: None
Family History
Family History: Not pertinent
Allergies / Home Medications
Allergies reflects when Allergies were last updated in [facility].
Home Medications with original date entered in [facility]
Allergy/Medication List:
Allergies
Allergy/AdvReac Type Severity Reaction Status Date / Time
morphine Allergy Severe Nausea / Verified 06/13/25 08:22
Vomiting
lisinopril Allergy cough Verified 06/13/25 08:22
Home Medications
aspirin 81 mg tablet,delayed release 81 mg PO DAILY 04/23/11
atorvastatin 80 mg tablet 80 mg PO QPM 02/06/16
famotidine 40 mg tablet 40 mg PO DAILY 02/06/16
amlodipine 10 mg tablet 10 mg PO DAILY 05/27/21
carvedilol 12.5 mg tablet 12.5 mg PO BID 05/27/21
furosemide 40 mg tablet 40 mg PO BID 05/27/21
irbesartan 150 mg tablet 150 mg PO DAILY 05/27/21
isosorbide mononitrate 30 mg tablet,extended release 24 hr 30 mg PO HS 05/27/21
insulin human U-100 NPH-regulr 70-30 mix 100 unit/mL subcutaneous susp (Novolin 70/30 U-100 Insulin) 35 unit SC HS 02/16/25
insulin human U-100 NPH-regulr 70-30 mix 100 unit/mL subcutaneous susp (Novolin 70/30 U-100 Insulin) 45 unit SC DAILY 02/16/25
amoxicillin 875 mg-potassium clavulanate 125 mg tablet 1 tab PO BID #14 tabs 06/12/25
clopidogrel 75 mg tablet (Plavix) 75 mg PO DAILY 06/13/25
Review of Systems
-
History Source: Patient
A 12 point ROS was completed and negative except as noted: Yes
Constitutional: Reports No Symptoms
EENT: Reports No Symptoms
Respiratory: Reports No Symptoms
Cardiac: Reports No Symptoms
Abdomen/GI: Reports No Symptoms
: Reports No Symptoms
Musculoskeletal: Reports No Symptoms
Skin: Reports No Symptoms
Neurological: Reports No Symptoms
Endocrine: Reports No Symptoms
Hematologic/Lymphatic: Reports No Symptoms
Psych: Reports No Symptoms
Physical Exam
Vital Signs
Vital Signs
Temp Pulse Resp BP Pulse Ox
97.9 F 74 21 156/83 95
06/13/25 08:19 06/13/25 18:00 06/13/25 09:38 06/13/25 18:00 06/13/25 18:00
Physical Exam
General: Well Developed, Well Nourished and No Apparent Distress
HEENT: NormoCephalic, Moist mucous membranes and Atraumatic
Respiratory: Clear
Cardiac: S1/S2 and Regular Rhythm; No Murmur or Rub
GI: Soft, Non Tender, Non Distended and Normal Bowel Sounds; No Organomegaly
Rectal: Deferred by Provider
Musculoskeletal: No Clubbing, No Cyanosis and No Edema
Skin: No Rash
Neuro: Nonfocal/grossly intact
Laboratory Results
-
06/13/25 08:49
06/13/25 08:49
Laboratory Results
Total Bilirubin 1.0 mg/dl (0.2-1.3) 06/13/25 08:49
AST 36 U/L (17-59) 06/13/25 08:49
ALT 36 U/L (0-50) 06/13/25 08:49
Alkaline Phosphatase 131 U/L (38-126) H 06/13/25 08:49
Troponin I 0.019 ng/ml 06/13/25 11:36
Data Reviewed
-
Lab Data: Labs Reviewed by me
Old Records: Reviewed
Impression/Plan
-
IMPRESSION:
PLAN:
# Pain under right rib possibly costochondritis versus abdominal pain from prior chemo embolization, doubt cardiac
-Chest x-ray without any acute abnormality
CTA chest abdomen pelvis shows no evidence of pulm embolism,
- EKG shows sinus rhythm with sinus arrhythmia, first-degree AV block, left bundle branch block
- Troponin 0.021, 0.019
-Trend troponins
- Significant improvement with Dilaudid
- As needed Tylenol, Dilaudid for pain
#Left preauricular lymphadenopathy
- Prescribed Augmentin yesterday, continue
- Warm compress
History of CAD with LAD/RCA stent
- Continue aspirin, Plavix, statin
- Continue Coreg
- Continue isosorbide mononitrate
# Hyperglycemia
# Type 2 diabetes
- Blood sugar 310
- Continue NPH 45 units daily, 35 units at nighttime for now but may need to change to basal bolus if continued hyperglycemia
-Insulin sliding scale for now
- Check A1c
- May need diabetic [employer] SHOE [employer]
Moderate aortic stenosis
Mild thrombocytopenia secondary to cirrhosis
Diabetic retinopathy
Essential hypertension
- Continue irbesartan, amlodipine
Hyperlipidemia
History of plaque psoriasis
Obesity
Hepatocellular carcinoma/cirrhosis
-Underwent chemoembolization in March
- Continue Lasix
Full code
DVT prophylaxis�heparin
Diabetic diet
[2025-06-13 21:31] LABS: Glucose - Point of Care 265 mg/dl (70-99)
[2025-06-13 21:44] LABS: Troponin I 0.016 ng/ml
[2025-06-13] MEDS: COREG 12.5 MG PO (22:15)
[2025-06-13] MEDS: AUGMENTIN 875 MG/125 MG 1 TABLET PO (22:16)
[2025-06-13] MEDS: HEPARIN 5000 UNITS SC (22:17)
[2025-06-13] MEDS: IMDUR (EXTENDED RELEASE) 30 MG PO (22:19)
[2025-06-13] MEDS: NOVOLOG MIX 70/30 FLEXPEN 35 UNITS SC (22:26)
[2025-06-14 03:10] VITALS: BP 118/56
[2025-06-14 03:40] LABS: Troponin I 0.019 ng/ml
[2025-06-14 06:00] VITALS: BMI 42.3
[2025-06-14 07:08] VITALS: BP 131/63
--- NOTE | 2025-06-14 08:03 | W.PN.HOSP.TC ---
Today's Communication/Plan
-
Wean opiates from Dilaudid to oxycodone
Tylenol 1 g every 6 hours
Start as needed Flexeril
Likely discharge later today
OP pulmonology referral for sleep study
Assessment / Plan
Assessment / Plan
#Painful Left preauricular lymphedema (POA)
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
- He states he has not noticed any improvement since being started on Augmentin, continues to have pain
- Augmentin continued here, started on warm compresses as needed
- Will add additional doxycycline 100 mg twice daily for additional coverage
- Trend CBC and temperature curve, continue with analgesics
- Consider steroid for symptomatic relief if not improving
#Intractable right rib pain
- Unclear cause though possibly costochondritis versus other MSK cause versus result of chemoembolization
- CXR without any bony abnormalities; CTA C/A/P without any acute findings including PE
- Was started on Tylenol and Dilaudid with significant improvement to discomfort
- Rib pain appears resolved, plan to wean opiates
#Presumed ISAIAS/OHS
- Morbidly obese habitus, BMPs over time with elevated CO2 possibly hypercapnia
- No signs of respiratory distress or hypoxemia here, mental status stable
- Should have follow-up as OP with pulmonology for sleep study and possible CPAP mask fitting
#IDDM 2 with hyperglycemia
#Diabetic retinopathy
- Home regimen includes NPH 45 units daily and 35 units at night
- Blood sugars in the 300s on arrival, continue at home regimen and ISS added
- Follow-up A1c, monitor blood glucose with goal 140-180
- Uptitrate NPH as needed
#CAD s/p LAD and RCA PCI
#Dyslipidemia
- Home regimen includes DAPT with aspirin and Plavix, high intensity statin, Coreg, Imdur
- No signs of ACS at this time, troponin is negative and chest pain atypical for cardiac cause
- Adjust insulin as above to optimize blood glucose
- LDL goal <70
#Moderate aortic stenosis
#Aortic root dilation
- Last echo with preserved LVEF, ORLY 1.24 cm� with mean gradient 27 mmHg, 4.1 cm aortic root dilation
- CTA on arrival without any signs of dissection
#Primary hypertension
- Home regimen includes irbesartan, amlodipine, isosorbide, Coreg
- Most recent echo did have mild concentric LVH likely due to hypertension and
- Blood pressure currently stable here
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
#HCC s/p chemoembolization
- Fairly well compensated with MELD 3.0 score of 10; Home regimen includes Lasix 160 mg, no Aldactone
- No history of esophageal varices, remains on carvedilol as above and also for prophylaxis
- Underwent chemoembolization for HCC in March 2025
- Monitor daily MELD labs and volume status
#H/O plaque psoriasis
- Does not appear to be on any immunosuppressive agents
- No signs of flare at this time
#Morbid obesity
- BMI 42.3 with weight 137.5 kg; affects all aspects of care
- Encourage Mediterranean diet, aerobic activity as tolerated for 30 minutes daily
Diet: Diabetic 2000-calorie
DVT: SQ heparin
Code: Full code
Dispo: Likely home within 24 hours
Anticipated Discharge: Within 24 hours
Subjective/Interval History
-
Date of Service: June 14, 2025
Seen and examined at the bedside. 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
Pain improved with Dilaudid. Denies any new complaints including chest pain, dyspnea, paresthesias, fevers or chills, GI or urinary issues
Morning labs stable, CO2 on BMP 38 and fairly persistently high on previous labs
Objective Data
-
Labs:
Laboratory Results
06/14/25
07:53
WBC Pending
Hgb Pending
Hct Pending
Plt Count Pending
Sodium Pending
Potassium Pending
Chloride Pending
Carbon Dioxide Pending
BUN Pending
Creatinine Pending
Glucose Pending
Calcium Pending
Total Bilirubin Pending
AST Pending
ALT Pending
Alkaline Phosphatase Pending
Vital Signs:
Vital Signs
Temp Pulse Resp BP Pulse Ox
98.2 F 53 18 118/56 97
06/14/25 03:10 06/14/25 03:10 06/14/25 03:10 06/14/25 03:10 06/14/25 03:10
I&O
06/13/25 06/14/25 06/15/25
06:59 06:59 06:59
Intake Total 717 / 717
Balance 717 / 717
Review of Systems
-
History Source: Patient
All other systems: Reviewed and negative
Physical Exam
-
General: Well Developed, No Apparent Distress and Morbidly Obese
HEENT: Normocephalic, Atraumatic, Moist Mucous Membranes, Anicteric and Other (Mild swelling of preauricular left LN with tenderness to palpation)
Respiratory: Clear to Auscultation and Non Labored Respirations; Negative Accessory Resp Muscle Use
Cardiac: Regular Rhythm, S1/S2 and Murmur (YOANA); Negative Rub or Gallop
GI: Soft, Nontender, Nondistended and Normal Bowel Sounds
Musculoskeletal: No Clubbing, No Cyanosis, No Edema and Other (No tenderness to palpation of right rib cage)
Skin: Warm and Dry; Negative Rash
Neuro: AO x 3, Nonfocal/Grossly Intact and Central Nerve's Intact
Psych: Calm
Data Reviewed
-
Labs: Labs Reviewed by me and Discussed with Patient
[2025-06-14 08:10] LABS: Glucose - Point of Care 173 mg/dl (70-99)
[2025-06-14] MEDS: AVAPRO 150 MG PO (08:13)
[2025-06-14] MEDS: NORVASC 10 MG PO (08:13)
[2025-06-14] MEDS: AUGMENTIN 875 MG/125 MG 1 TABLET PO ×2 (08:13→21:45)
[2025-06-14] MEDS: PEPCID 20 MG PO ×2 (08:14→21:45)
[2025-06-14] MEDS: NOVOLOG MIX 70/30 FLEXPEN 45 UNITS SC (08:16)
[2025-06-14 08:31] LABS: Troponin I < 0.012 ng/ml
[2025-06-14 08:41] LABS: ALT (SGPT) 31 U/L (0-50); AST (SGOT) 27 U/L (17-59); Albumin 3.7 g/dl (3.5-5.0); Alkaline Phosphatase 101 U/L (38-126); Blood Urea Nitrogen 21 mg/dl (9-20); Calcium 9.0 mg/dl (8.4-10.2); Carbon Dioxide 37 mmol/L (22-30); Chloride 99 mmol/L (98-107); Estimated Creatinine Clearance 120 ml/min; Glucose 172 mg/dl (70-99); Potassium 4.2 mmol/L (3.5-5.1); Sodium 137 mmol/L (135-145); Total Protein 7.1 g/dl (6.3-8.2); eGFR > 60.00
[2025-06-14 08:45] LABS: Hematocrit 35.3 % (39.0-52.0); Hemoglobin 11.2 g/dL (13.0-18.0); Mean Corp Hgb Conc. 31.7 g/dL (33.0-37.0); Mean Corpuscular Volume 85.1 fL (80.0-94.0); Nucleated Red Blood Cells % 0 % (-); Platelet Count 144 10^3/uL (130-400); Red Cell Dist. Width 14.2 % (11.5-14.5)
[2025-06-14] MEDS: NOVOLOG FLEXPEN-LOW RESISTANCE 1 UNITS SC (08:55)
[2025-06-14] MEDS: HEPARIN 5000 UNITS SC ×2 (08:55→21:45)
[2025-06-14] MEDS: PLAVIX 75 MG PO (08:55)
[2025-06-14] MEDS: ASPIR LOW (ENTERIC COATED) 81 MG PO (08:56)
[2025-06-14 09:42] LABS: Hepatitis C Antibody Negative (Negative)
[2025-06-14] MEDS: VIBRAMYCIN 100 MG PO ×2 (10:51→21:45)
[2025-06-14] MEDS: ROXICODONE 5 MG PO ×2 (10:51→22:56)
[2025-06-14] MEDS: COREG PO ×2 (10:57→21:37)
[2025-06-14 11:00] VITALS: BP 117/60
[2025-06-14 11:21] LABS: Glycohemoglobin (HgbA1c) 7.4 % (4.0-5.9)
[2025-06-14] MEDS: LASIX 80 MG PO (11:57)
[2025-06-14 12:03] LABS: Glucose - Point of Care 118 mg/dl (70-99)
[2025-06-14] MEDS: NOVOLOG FLEXPEN-LOW RESISTANCE SC ×2 (12:05→16:34)
[2025-06-14] MEDS: MOTRIN 400 MG PO (12:47)
--- NOTE | 2025-06-14 14:13 | CM ---
Addendum entered by Nilam Morse 06/14/25 14:34:
BLANCAS given and placed on chart. Nurse aware of facilial pain
Original Note:
Met with pt at bedside. Currently with L sided facial pain. IA partially completed due to pt's pain level. Will complete IA tomorrow if pain level is improved
Lives in a 2 story home with 8 family members including adult children, grandchildren and great grandchildren. is bedbound; requires need surgery. Pt and live only on the 1st floor, family members are on the second floor. There is a dtr
living in/near the [facility] who comes down the their home and cares for her mother M-F
Pt is independent at home.
No hx of HH,, SNF or home O2.
Has DME in the home but he doesn't need any of it, it is for his
Pt verbalized 'there is never enough food in the home'...I take care of all of the home and grounds. He trys to go the a food pantry at a [employer] in [place], [place] but often the line is long and he has pain from standing too long. States his
Pt is currently unemployed
Plan: home with no needs. Pt is still in workup for left facial pain
[2025-06-14 14:26] LABS: Troponin I < 0.012 ng/ml
[2025-06-14 15:00] VITALS: BP 128/67
[2025-06-14] MEDS: ROXICODONE 10 MG PO (15:17)
[2025-06-14 16:21] LABS: Glucose - Point of Care 114 mg/dl (70-99)
[2025-06-14] MEDS: LIPITOR 80 MG PO (18:03)
[2025-06-14 19:35] VITALS: BP 126/60
[2025-06-14 21:18] LABS: Glucose - Point of Care 106 mg/dl (70-99)
[2025-06-14] MEDS: NOVOLOG MIX 70/30 FLEXPEN SC (21:40)
[2025-06-14] MEDS: LASIX PO (21:40)
[2025-06-14] MEDS: IMDUR (EXTENDED RELEASE) 30 MG PO (21:54)
[2025-06-14 22:31] LABS: Glucose - Point of Care 97 mg/dl (70-99)
[2025-06-14 23:00] VITALS: BP 146/76
[2025-06-15 03:14] VITALS: BP 136/70
[2025-06-15] MEDS: TIGAN 200 MG IM (03:31)
[2025-06-15 06:00] VITALS: BMI 42.4
[2025-06-15 07:10] VITALS: BP 153/94
--- NOTE | 2025-06-15 07:19 | W.PN.HOSP.TC ---
Today's Communication/Plan
-
discharge today
Assessment / Plan
Assessment / Plan
#Painful Left preauricular lymphedema (POA)
# Left otitis externa
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
- He states he has not noticed any improvement since being started on Augmentin, continues to have pain
- Augmentin continued here, started on warm compresses as needed
- Will add additional doxycycline 100 mg twice daily for additional coverage
- per informal discussion with ENT, added otic cipro-dex ear drops for 7 days, bid on discharge meds
- advised to call ENT and alerted ENT to expect patient to call regarding LN biopsy
- counselled patient to call hematology as well
- discharge today
#Intractable right rib pain
- Unclear cause though possibly costochondritis versus other MSK cause versus result of chemoembolization
- CXR without any bony abnormalities; CTA C/A/P without any acute findings including PE
- Was started on Tylenol and Dilaudid with significant improvement to discomfort
- Rib pain appears resolved, plan to wean opiates; last dilaudid 06/13
#Presumed ISAIAS/OHS
- Morbidly obese habitus, BMPs over time with elevated CO2 possibly hypercapnia
- No signs of respiratory distress or hypoxemia here, mental status stable
- Should have follow-up as OP with pulmonology for sleep study and possible CPAP mask fitting
#IDDM 2 with hyperglycemia
#Diabetic retinopathy
- Home regimen includes NPH 45 units daily and 35 units at night
- Blood sugars in the 300s on arrival, continue at home regimen and ISS added
- Follow-up A1c, monitor blood glucose with goal 140-180
- Uptitrate NPH as needed
#CAD s/p LAD and RCA PCI
#Dyslipidemia
- Home regimen includes DAPT with aspirin and Plavix, high intensity statin, Coreg, Imdur
- No signs of ACS at this time, troponin is negative and chest pain atypical for cardiac cause
- Adjust insulin as above to optimize blood glucose
- LDL goal <70
#Moderate aortic stenosis
#Aortic root dilation
- Last echo with preserved LVEF, ORLY 1.24 cm� with mean gradient 27 mmHg, 4.1 cm aortic root dilation
- CTA on arrival without any signs of dissection
#Primary hypertension
- Home regimen includes irbesartan, amlodipine, isosorbide, Coreg
- Most recent echo did have mild concentric LVH likely due to hypertension and
- Blood pressure currently stable here
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
#HCC s/p chemoembolization
- Fairly well compensated with MELD 3.0 score of 10; Home regimen includes Lasix 160 mg, no Aldactone
- No history of esophageal varices, remains on carvedilol as above and also for prophylaxis
- Underwent chemoembolization for HCC in March 2025
- Monitor daily MELD labs and volume status
#H/O plaque psoriasis
- Does not appear to be on any immunosuppressive agents
- No signs of flare at this time
#Morbid obesity
- BMI 42.3 with weight 137.5 kg; affects all aspects of care
- Encourage Mediterranean diet, aerobic activity as tolerated for 30 minutes daily
Diet: Diabetic 2000-calorie
DVT: SQ heparin
Code: Full code
Dispo: Likely home within 24 hours
Anticipated Discharge: Today
Subjective/Interval History
-
Date of Service: June 15, 2025
69-year-old male past medical history of CAD with history of RCA stent, moderate aortic stenosis, history of recurrent chest pain with negative troponins, type 2 diabetes, diabetic retinopathy, hypertension, hyperlipidemia, plaque psoriasis,
obesity, hepatocellular carcinoma status post chemoembolization in March, presenting with right-sided abdominal/chest pain under his right rib.
he feelsokay this am, still complainitn of left sided ear/jaw pain with preaucirlar lymphemedam
no other headache, chest pain, shortness of breath
Objective Data
-
Labs:
Laboratory Results
06/15/25
06:00
WBC Pending
Hgb Pending
Hct Pending
Plt Count Pending
Sodium Pending
Potassium Pending
Chloride Pending
Carbon Dioxide Pending
BUN Pending
Creatinine Pending
Glucose Pending
Calcium Pending
WBC 5.5
Hgb 11.8
Vital Signs:
Vital Signs
Temp Pulse Resp BP Pulse Ox
97.6 F 56 18 136/70 97
06/15/25 03:14 06/15/25 03:14 06/15/25 03:14 06/15/25 03:14 06/15/25 03:14
I&O
06/14/25 06/15/25 06/16/25
06:59 06:59 06:59
Intake Total 717 / 717 680 / 680
Balance 717 / 717 680 / 680
Physical Exam
-
HEENT: Other (swelling near left preauricular area)
Respiratory: Clear to Auscultation
Cardiac: Other (systolic murmur)
GI: Soft and Nontender
Musculoskeletal: No Edema
Skin: Other (erythema on knees)
Neuro: AO x 3, Nonfocal/Grossly Intact and Other (EOMI, cranial nerves grossly intact)
Psych: Calm
[2025-06-15 07:34] LABS: Glucose - Point of Care 157 mg/dl (70-99)
[2025-06-15] MEDS: NOVOLOG FLEXPEN-LOW RESISTANCE 1 UNITS SC ×2 (08:10→12:21)
[2025-06-15] MEDS: HEPARIN 5000 UNITS SC (08:10)
[2025-06-15] MEDS: NOVOLOG MIX 70/30 FLEXPEN 45 UNITS SC (08:11)
[2025-06-15] MEDS: AVAPRO 150 MG PO (08:11)
[2025-06-15] MEDS: AUGMENTIN 875 MG/125 MG 1 TABLET PO (08:12)
[2025-06-15] MEDS: COREG 12.5 MG PO (08:12)
[2025-06-15] MEDS: VIBRAMYCIN 100 MG PO (08:12)
[2025-06-15] MEDS: NORVASC 10 MG PO (08:13)
[2025-06-15] MEDS: PEPCID 20 MG PO (08:13)
[2025-06-15] MEDS: ROXICODONE 10 MG PO (08:23)
[2025-06-15 08:25] LABS: Hematocrit 36.1 % (39.0-52.0); Hemoglobin 11.8 g/dL (13.0-18.0); Mean Corp Hgb Conc. 32.7 g/dL (33.0-37.0); Mean Corpuscular Volume 84.9 fL (80.0-94.0); Nucleated Red Blood Cells % 0 % (-); Platelet Count 139 10^3/uL (130-400); Red Cell Dist. Width 14.3 % (11.5-14.5)
[2025-06-15 09:31] LABS: Blood Urea Nitrogen 20 mg/dl (9-20); Calcium 8.7 mg/dl (8.4-10.2); Chloride 97 mmol/L (98-107); Estimated Creatinine Clearance > 125 ml/min; Glucose 155 mg/dl (70-99); Potassium 3.9 mmol/L (3.5-5.1); Sodium 137 mmol/L (135-145); eGFR > 60.00
[2025-06-15] MEDS: PLAVIX 75 MG PO (09:35)
[2025-06-15] MEDS: LASIX 80 MG PO (09:35)
[2025-06-15] MEDS: ASPIR LOW (ENTERIC COATED) 81 MG PO (09:35)
[2025-06-15 09:48] LABS: Carbon Dioxide 35 mmol/L (22-30)
--- NOTE | 2025-06-15 10:13 | CM ---
patient seen at bedside
on Augmentin, states cont with pain
PLAN: Home, no needs anticipated
states dtr will transport
[2025-06-15 11:19] VITALS: BP 142/75
[2025-06-15 11:58] LABS: Glucose - Point of Care 150 mg/dl (70-99)
--- NOTE | 2025-06-15 13:20 | W.DCSUMMARY ---
Documented by User: Rodney Stoll MD, Resident 06/15/25 13:58
Discharge Summary
Discharge Data
Date of Admission: 06/13/25
Date of Discharge: 06/15/25
-
Pending Results: No
Hospital Course
Discharging Physician : Dr. Day, Dr. Stoll
Disposition : Home
Primary care physician : Jef Madsen
Principal Discharge diagnosis : Left-sided preauricular lymphadenopathy, Left otitis externa, Right sided rib discomfort
Chronic Discharge diagnosis : Chronic CAD s/p PCI x 2, Chronic moderate , Chronic IDDM with retinopathy, Chronic HCC s/p chemoembolization (03/2025), Chronic MASH cirrhosis, Morbid obesity
Hospital Course :
69yo M PMH CAD with history of RCA stent, moderate aortic stenosis, history of recurrent chest pain with negative troponins, type 2 diabetes, diabetic retinopathy, hypertension, hyperlipidemia, plaque psoriasis, obesity, hepatocellular carcinoma
status post chemoembolization in March, presenting with right-sided abdominal/chest pain under his right rib. He is presenting on 06/13.
Of note, he came to the emergency room on 06/12 for swelling in front of his left ear attributed to lymphadenitis and was started on Augmentin without improvement.
He is discharged on antibiotics, augmentin and doxycycline, and antibiotic ear drops (ciprofloxacin-dexamethasone). He has been advised to follow-up with ENT and hematology-oncology.
The following problems were addressed during this admission
#Painful Left preauricular lymphedema (POA)
#Acute otitis externa, left
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
- He states he has not noticed any improvement since being started on Augmentin, continues to have pain
- Advised to continue augmentin and doxycycline upon discharge
- also prescribed ciprofloxacin-dexamethasone otic drops to treat left otitis externa found on CT facial bones
#Intractable right rib pain
- Unclear cause though possibly costochondritis versus other MSK cause versus result of chemoembolization
- CXR without any bony abnormalities; CTA C/A/P without any acute findings including PE
- appears improved, given short course of oxycodone upon discharge
#Presumed ISAIAS/OHS
- Morbidly obese habitus
#IDDM 2 with hyperglycemia
#Diabetic retinopathy
- Home regimen includes NPH 45 units daily and 35 units at night
#CAD s/p LAD and RCA PCI
#Dyslipidemia
- Home regimen includes DAPT with aspirin and Plavix, high intensity statin, Coreg, Imdur
- No signs of ACS at this time, troponin is negative and chest pain atypical for cardiac cause
#Moderate aortic stenosis
#Aortic root dilation
- Last echo with preserved LVEF, ORLY 1.24 cm� with mean gradient 27 mmHg, 4.1 cm aortic root dilation
- CTA on arrival without any signs of dissection
#Primary hypertension
- Home regimen includes irbesartan, amlodipine, isosorbide, Coreg
- Most recent echo did have mild concentric LVH likely due to hypertension and
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
#HCC s/p chemoembolization
- Fairly well compensated with MELD 3.0 score of 10; Home regimen includes Lasix 160 mg, no Aldactone
- No history of esophageal varices, remains on carvedilol as above and also for prophylaxis
- Underwent chemoembolization for HCC in March 2025
#H/O plaque psoriasis
- Does not appear to be on any immunosuppressive agents
- No signs of flare at this time
Important imaging findings :
CT Abdomen Pelvis 06/13/2025
IMPRESSION: Mild to moderate respiratory motion artifact slightly limiting evaluation of the distal coronary arteries. Given this limitation, no evidence for pulmonary embolism.
Mild to moderate dependent atelectasis in the posterior lungs.
Significant aortic valvular calcification is noted, and please correlate with any clinical signs or symptoms that would suggest clinically significant aortic stenosis. Of note, patient had an echocardiogram on May 13, 2025, pressure gradients
compatible with moderate aortic stenosis.
Suboptimal phase of contrast enhancement for the liver. Development of focal patchy calcification within the liver, in the region of diffusely seen band of decreased enhancement corresponding to biopsy-proven hepatocellular carcinoma. Please
correlate with any interval therapy. See above discussion.
Cirrhotic contour of the liver. Splenomegaly. No significant ascites.
Status post cholecystectomy with no evidence for biliary ductal dilation.
No evidence for bowel obstruction. No evidence for free intraperitoneal air.
CXR 06/13/2025
IMPRESSION:
1. Severe calcific atherosclerotic plaque in the coronary arteries.
2. No radiographic evidence for acute pulmonary edema, pneumonia, or pleural effusion.
3. Mildly to moderately decreased bilateral lung volumes.
From 06/[address] Facial Bones W/ Iv Contrast
IMPRESSION:
1. Inflammation within and around the left inferior and external auditory canal suggesting ACUTE LEFT OTITIS EXTERNA. Acute sialoadenitis of the left parotid gland is considered less likely given that the inflammation appears to be more centered
around the left ear. Acute lymphadenitis is also a diagnostic possibility, but there is no definitive enlarged lymph node in the region of the inflammation.
2. No CT evidence for abscess or soft tissue emphysema.
Discharge Plan
-
Patient Disposition: Home (Routine Discharge)
Discharge Diagnosis/Procedures: Left-sided preauricular lymphadenopathy
Left otitis externa
Right sided rib discomfort
Chronic CAD s/p PCI x 2
Chronic moderate
Chronic IDDM with retinopathy
Chronic HCC s/p chemoembolization (03/2025)
Chronic MASH cirrhosis
Morbid obesity
Condition: Good
Diet: Diabetic, Carb Controlled, No added salt and Restrict fluids to 64 oz
Activity: As tolerated
Driving Restrictions: As prior to admission
Bathing Restrictions: None
Blood Work: BMP, magnesium, phosphorus, CBC with differential in 1 week with family doctor
Others Tests: Possible lymph node biopsy with ENT in office
Activity Restrictions/Additional Instructions:
Follow-up with family doctor within 1 week of discharge
Contact ENT referral and schedule office appointment, Dr. Adames from [facility] said you will be seen this week in their office
Please contact Hematology/Oncology to also evaluate the left preauricular lymphadenopathy
Referrals:
Grace Alan MD [Active, Hematology / Oncology] - in one to two weeks
Referral Note: Preauricular lymphadenopathy
Darrius Adames MD [Active, Otology] - in less than 1 week
Referral Note: Contact office to schedule appointment, they said they will be able to see you this week
Jef Madsen MD [Family Provider, [facility]]
Additional Discharge Medication Instructions: Continue Augmentin and doxycycline twice daily for 7 days after discharge or if discontinued by an outside physician
You should also use the ear drops: ciprofloxacin-dexamethasone, 4 drops in left ear, twice a day for 7 days or until told by your ENT doctor.
Use Tylenol 1000 mg every 6 hours for pain
Oxycodone 10 mg every 6 hours as needed for severe pain
Can add 600 mg ibuprofen as needed for breakthrough discomfort (avoid persistent usage which may increase risk for renal insufficiency and GI bleeding)
Please call ENT and hematology/oncology for further evaluation of left preauricular swelling/lymphadenopathy.
Prescriptions:
New
doxycycline hyclate 100 mg Capsule
100 mg PO Q12 7 Days Qty: 14 0RF
amoxicillin-pot clavulanate 875-125 mg Tablet
1 tab PO BID 7 Days Qty: 14 0RF
oxycodone 5 mg Tablet
5 mg PO Q4HPRN PRN (Reason: Moderate pain) Qty: 5 0RF
sennosides-docusate sodium [Docuzen] 8.6-50 mg tablet
1 tab-cap PO BID Qty: 14 0RF
Rx Instructions:
while on oxycodone
ciprofloxacin-dexamethasone 0.3-0.1 % drops,suspension
4 drp otic (ear) BID 7 Days Qty: 420 0RF
Continued
aspirin 81 MG tablet,delayed release (/EC)
81 mg PO DAILY
atorvastatin 80 MG tablet
80 mg PO QPM
famotidine 40 MG tablet
40 mg PO DAILY
furosemide 40 MG tablet
160 mg PO DAILY
carvedilol 12.5 MG tablet
12.5 mg PO BID
isosorbide mononitrate 30 MG tablet extended release 24 hr
30 mg PO HS
amlodipine 10 MG tablet
10 mg PO DAILY
irbesartan 150 MG tablet
150 mg PO DAILY
Novolin 70/30 U-100 Insulin 100 unit/mL (70-30) Suspension
45 unit SC DAILY
Novolin 70/30 U-100 Insulin 100 unit/mL (70-30) Suspension
35 unit SC HS
clopidogrel [Plavix] 75 mg Tablet
75 mg PO DAILY
Discontinued
amoxicillin-pot clavulanate 875-125 mg tablet
1 tab PO BID Qty: 14 0RF
Discharge Orders:
Discharge Patient (As Directed); Ordered 06/15/25
Ordered By: Rodney Stoll
Discharge Date and Time
Discharge Date/Time: 06/15/25 14:08
Print Language: ZAMBIAN

Documented by User: Clare Day MD 06/15/25 15:34
Discharge Summary
Discharge Data
Date of Admission: 06/13/25
Date of Discharge: 06/15/25
Hospital Course
Discharging Physician : Dr. Day, Dr. Stoll
Disposition : Home
Primary care physician : Jef Madsen
Principal Discharge diagnosis : Left-sided preauricular mass suspect lymphadenopathy, Left otitis externa, Right sided rib discomfort (resolved)
Chronic Discharge diagnosis : Chronic CAD s/p PCI x 2, Chronic moderate , Chronic IDDM with retinopathy, Chronic HCC s/p chemoembolization (03/2025), Chronic MASH cirrhosis, Morbid obesity
Hospital Course :
69 yo M PMH CAD with history of RCA stent, moderate aortic stenosis, history of recurrent chest pain with negative troponins, type 2 diabetes, diabetic retinopathy, hypertension, hyperlipidemia, plaque psoriasis, obesity, hepatocellular carcinoma
status post chemoembolization in March, presented with right-sided chest pain and L preauricular mass.
Of note, he came to the emergency room on 06/12 for swelling in front of his left ear attributed to lymphadenitis and was started on Augmentin without improvement.
His R sided chest/rib pain resolved uneventfully while in the hospital.
He has been informed to follow up with ENT and heme outpatient for his L preauricular mass suspect lymphadenopathy.
In addition to the antibiotic Augmentin, doxycycline was added. He can continue both following discharge.
His CT facial bone noted acute left otitis externa. He was also discharged with ciprofloxacin ear drop.
He has been advised to follow-up with ENT and hematology-oncology.
Important imaging findings :
CT Abdomen Pelvis 06/13/2025
IMPRESSION: Mild to moderate respiratory motion artifact slightly limiting evaluation of the distal coronary arteries. Given this limitation, no evidence for pulmonary embolism.
Mild to moderate dependent atelectasis in the posterior lungs.
Significant aortic valvular calcification is noted, and please correlate with any clinical signs or symptoms that would suggest clinically significant aortic stenosis. Of note, patient had an echocardiogram on May 13, 2025, pressure gradients
compatible with moderate aortic stenosis.
Suboptimal phase of contrast enhancement for the liver. Development of focal patchy calcification within the liver, in the region of diffusely seen band of decreased enhancement corresponding to biopsy-proven hepatocellular carcinoma. Please
correlate with any interval therapy. See above discussion.
Cirrhotic contour of the liver. Splenomegaly. No significant ascites.
Status post cholecystectomy with no evidence for biliary ductal dilation.
No evidence for bowel obstruction. No evidence for free intraperitoneal air.
CXR 06/13/2025
IMPRESSION:
1. Severe calcific atherosclerotic plaque in the coronary arteries.
2. No radiographic evidence for acute pulmonary edema, pneumonia, or pleural effusion.
3. Mildly to moderately decreased bilateral lung volumes.
From 06/[address] Facial Bones W/ Iv Contrast
IMPRESSION:
1. Inflammation within and around the left inferior and external auditory canal suggesting ACUTE LEFT OTITIS EXTERNA. Acute sialoadenitis of the left parotid gland is considered less likely given that the inflammation appears to be more centered
around the left ear. Acute lymphadenitis is also a diagnostic possibility, but there is no definitive enlarged lymph node in the region of the inflammation.
2. No CT evidence for abscess or soft tissue emphysema.
Discharge Plan
-
Patient Disposition: Home (Routine Discharge)
Discharge Diagnosis/Procedures: Left-sided preauricular lymphadenopathy
Left otitis externa
Right sided rib discomfort
Chronic CAD s/p PCI x 2
Chronic moderate
Chronic IDDM with retinopathy
Chronic HCC s/p chemoembolization (03/2025)
Chronic MASH cirrhosis
Morbid obesity
Condition: Good
Diet: Diabetic, Carb Controlled, No added salt and Restrict fluids to 64 oz
Activity: As tolerated
Driving Restrictions: As prior to admission
Bathing Restrictions: None
Blood Work: BMP, magnesium, phosphorus, CBC with differential in 1 week with family doctor
Others Tests: Possible lymph node biopsy with ENT in office
Activity Restrictions/Additional Instructions:
Follow-up with family doctor within 1 week of discharge
Contact ENT referral and schedule office appointment, Dr. Adames from the [facility] said you will be seen this week in their office
Please contact Hematology/Oncology to also evaluate the left preauricular lymphadenopathy
Referrals:
Grace Alan MD [Active, Hematology / Oncology] - in one to two weeks
Referral Note: Preauricular lymphadenopathy
Mass,Darrius C., MD [Active, Otology] - in less than 1 week
Referral Note: Contact office to schedule appointment, they said they will be able to see you this week
Jef Madsen MD [Family Provider, [facility]]
Additional Discharge Medication Instructions: Continue Augmentin and doxycycline twice daily for 7 days after discharge or if discontinued by an outside physician
You should also use the ear drops: ciprofloxacin-dexamethasone, 4 drops in left ear, twice a day for 7 days or until told by your ENT doctor.
Use Tylenol 1000 mg every 6 hours for pain
Oxycodone 10 mg every 6 hours as needed for severe pain
Can add 600 mg ibuprofen as needed for breakthrough discomfort (avoid persistent usage which may increase risk for renal insufficiency and GI bleeding)
Please call ENT and hematology/oncology for further evaluation of left preauricular swelling/lymphadenopathy.
Prescriptions:
New
doxycycline hyclate 100 mg Capsule
100 mg PO Q12 7 Days Qty: 14 0RF
amoxicillin-pot clavulanate 875-125 mg Tablet
1 tab PO BID 7 Days Qty: 14 0RF
oxycodone 5 mg Tablet
5 mg PO Q4HPRN PRN (Reason: Moderate pain) Qty: 5 0RF
sennosides-docusate sodium [Docuzen] 8.6-50 mg tablet
1 tab-cap PO BID Qty: 14 0RF
Rx Instructions:
while on oxycodone
ciprofloxacin-dexamethasone 0.3-0.1 % drops,suspension
4 drp otic (ear) BID 7 Days Qty: 420 0RF
Continued
aspirin 81 MG tablet,delayed release (DR/EC)
81 mg PO DAILY
atorvastatin 80 MG tablet
80 mg PO QPM
famotidine 40 MG tablet
40 mg PO DAILY
furosemide 40 MG tablet
160 mg PO DAILY
carvedilol 12.5 MG tablet
12.5 mg PO BID
isosorbide mononitrate 30 MG tablet extended release 24 hr
30 mg PO HS
amlodipine 10 MG tablet
10 mg PO DAILY
irbesartan 150 MG tablet
150 mg PO DAILY
Novolin 70/30 U-100 Insulin 100 unit/mL (70-30) Suspension
45 unit SC DAILY
Novolin 70/30 U-100 Insulin 100 unit/mL (70-30) Suspension
35 unit SC HS
clopidogrel [Plavix] 75 mg Tablet
75 mg PO DAILY
Discontinued
amoxicillin-pot clavulanate 875-125 mg tablet
1 tab PO BID Qty: 14 0RF
Discharge Orders:
Discharge Patient (As Directed); Ordered 06/15/25
Ordered By: Rodney Stoll
Discharge Date and Time
Discharge Date/Time: 06/15/25 14:08
Print Language: ZAMBIAN
--- NOTE | 2025-06-15 13:27 | W.PN.UPDATE ---
Update Note
Progress Note Update
I saw and evaluated the patient with the resident.
A/P:
# Painful Left preauricular lymph node POA
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
He states he has not noticed any improvement since being started on Augmentin, continues to have pain
Cont Augmentin, added doxycycline- cont both upon discharge
Cont warm compresses
Pain control with oxycodone PRN (bowel regimen with Senokot-S added for while on opiate)
ENT and heme eval outpatient
# Acute otitis externa
Start Cipro ear drop
Follow up with ENT outpatient
# Right rib pain has resolved
# Presumed ISAIAS/OHS
Morbidly obese habitus, BMI 42
# IDDM 2 with hyperglycemia
# Diabetic retinopathy
Home regimen includes NPH 45 units daily and 35 units at night
A1C 7.4%
# CAD s/p LAD and RCA PCI
# Dyslipidemia
Home regimen includes DAPT with aspirin and Plavix, high intensity statin, Coreg, Imdur
# Moderate aortic stenosis
# Aortic root dilation
Last echo with preserved LVEF, ORLY 1.24 cm� with mean gradient 27 mmHg, 4.1 cm aortic root dilation
CTA on arrival without any signs of dissection
# Primary hypertension
Home regimen includes irbesartan, amlodipine, isosorbide, Coreg
Blood pressure stable here
# [place] liver cirrhosis C/B ascites and thrombocytopenia
# HCC s/p chemoembolization
Fairly well compensated with MELD 3.0 score of 10; Home regimen includes Lasix 160 mg, no Aldactone
No history of esophageal varices, remains on carvedilol as above and also for prophylaxis
Underwent chemoembolization for HCC in March 2025
Monitor daily MELD labs and volume status
# H/O plaque psoriasis
Does not appear to be on any immunosuppressive agents
No signs of flare at this time
== END 2025-06-15 14:08 | disposition home or self-care (01) ==
LOC: 4 EAST ACU 19:03
PROVIDERS: Internal Medicine; ADMITTING PHYSICIAN Hospitalist; ATTENDING PHYSICIAN Internal Medicine; EMERGENCY PHYSICIAN Emergency Medicine; FAMILY PHYSICIAN Family Medicine
DX: H60.502 Unspecified acute noninfective otitis externa, left ear (principal); R07.89 Other chest pain; D69.59 Other secondary thrombocytopenia; E11.319 Type 2 diabetes mellitus with unspecified diabetic retinopathy without macular edema; E11.65 Type 2 diabetes mellitus with hyperglycemia; E66.01 Morbid (severe) obesity due to excess calories; Z68.41 Body mass index [BMI] 40.0-44.9, adult; E78.00 Pure hypercholesterolemia, unspecified; I10 Essential (primary) hypertension; I25.10 Atherosclerotic heart disease of native coronary artery without angina pectoris; I35.0 Nonrheumatic aortic (valve) stenosis; I77.810 Thoracic aortic ectasia; I89.0 Lymphedema, not elsewhere classified; J98.11 Atelectasis; K74.60 Unspecified cirrhosis of liver; K75.81 Nonalcoholic steatohepatitis (NASH); Z79.899 Other long term (current) drug therapy; Z87.891 Personal history of nicotine dependence; Z92.21 Personal history of antineoplastic chemotherapy; L40.0 Psoriasis vulgaris
CPT/HCPCS: 71046; 71275; 74177; 80048; 80053; 82962; 83036; 84484; 85025; 86803; 93005; 96374; 96375; 96376; 99285; G0378; Q9967